=== PATIENT | male | born 1970 | race Caucasian/White ===

== ENCOUNTER → 2020-11-01 08:36 | Outpatient (CLI) | payer OTHER, SELFPAY ==
[2020-11-01 10:05] LABS: Chloride 102 mmol/L (98-107); Potassium 5.2 mmoL/L (3.5-5.1); Sodium 141 mmol/L (136-145)
[2020-11-01 10:07] LABS: Alanine Aminotransferase 21 U/L (12-78); Alkaline Phosphatase 65 U/L (38-126); Aspartate Amino Transferase 47 U/L (17-59); Blood Urea Nitrogen 18 mg/dl (9-20); Estimated Glomerular Filt Rate 70 ml/min (>60); GFR (African American) 85 ML/MIN (>60)
[2020-11-01 10:08] LABS: Albumin Level 4.6 g/dl (3.5-5.0); Albumin/Globulin Ratio 1.4 (1.1-1.8); Anion Gap 8.2 mEq/L (5-15); Calcium 10.1 mg/dl (8.4-10.2); Carbon Dioxide 36 mmol/L (22.0-30.0); Chol/HDL Ratio 3.4 (1-3.5); Cholesterol 192 mg/dl (140-200); Globulin 3.4 g/dL (1.3-3.2); Glucose 96 mg/dl (74-100); HDL Cholesterol 56 mg/dl (40-60); Triglycerides 98 mg/dl (30-150); VLDL Cholesterol 20 mg/dL (0-40)
[2020-11-01 10:19] LABS: Direct LDL Cholesterol 96.29 mg/dL (100-129)
[2020-11-01 11:43] LABS: Prostate Specific Ag Screen 0.7 ng/ml (0.0-4.0)
== END ==
PROVIDERS: PCP Family Medicine; Visit Provider Family Medicine
DX: Z00.00 Encounter for general adult medical examination without abnormal findings (principal); Z12.5 Encounter for screening for malignant neoplasm of prostate
CPT/HCPCS: 36415; 80053; 80061; G0103

== ENCOUNTER → 2021-06-22 20:12 | Outpatient (CLI) | payer OTHER, SELFPAY | PROVIDERS: Visit Provider Nurse Practitioner Family | DX: Z20.822 Contact with and (suspected) exposure to COVID-19 (principal) | CPT/HCPCS: C9803; U0003; U0005 ==

== ENCOUNTER → 2022-03-09 10:45 | Outpatient (CLI) | payer OTHER, SELFPAY ==
--- NOTE | 2022-03-09 10:53 | XR_ITS ---
FINAL REPORT CLINICAL HISTORY: LT ARM PAIN FINDINGS: 2 views of the left humerus were obtained. There is no acute fracture or dislocation. The joint spaces appear intact. There is no acute soft tissue abnormality. IMPRESSION: No acute process. Reviewed, Interpreted and Dictated by Pravin Roach III, MD Transcribed by Nam Saenz Authenticated and [facility]
--- NOTE | 2022-03-09 10:53 | XR_ITS ---
FINAL REPORT CLINICAL HISTORY: RT ELBOW PAIN,SWOLLEN JOINT FINDINGS: LEFT ELBOW Four views were obtained. There is no acute fracture or dislocation. There is no joint effusion. The joint spaces are intact. There is a lateral humeral epicondyle enthesophyte. There is soft tissue swelling over the olecranon likely representing olecranon bursitis. IMPRESSION: No acute fracture. Olecranon bursitis. Reviewed, Interpreted and Dictated by Pravin Roach III, MD Transcribed by Nam Saenz Authenticated and [facility]
== END ==
PROVIDERS: PCP Nurse Practitioner Family; Visit Provider Nurse Practitioner Family
DX: M25.521 Pain in right elbow (principal); M25.40 Effusion, unspecified joint
CPT/HCPCS: 73060; 73080

== ENCOUNTER → 2022-06-28 07:15 | Outpatient (CLI) | payer OTHER, SELFPAY ==
[2022-06-28 08:28] LABS: Basophils # 0.1 K/mm3 (0-0.2); Basophils % 1.5 % (0.1-2.0); Eosinophils # 0.4 K/mm3 (0.0-0.4); Eosinophils % 4.9 % (0.1-12.0); Hematocrit 55.8 % (42.0-52.0); Hemoglobin 17.5 g/dL (14.1-18.0); Lymphocytes # 1.6 K/mm3 (0.7-4.5); Lymphocytes % 20.1 % (10-50); Mean Corpuscular HGB Conc 31.4 g/dL (31.8-35.4); Mean Corpuscular Hemoglobin 31.8 pg (27.0-31.2); Mean Corpuscular Volume 101.3 fl (80-94); Mean Platelet Volume 8.1 fl (7.4-10.4); Monocytes # 0.4 K/mm3 (0.1-1.0); Monocytes % 5.4 % (1.7-9.3); Neutrophils # 5.4 K/mm3 (1.8-7.8); Neutrophils % 68.1 % (37.0-80.0); Platelet Count 278 K/mm3 (142-424); Red Blood Count 5.51 M/mm3 (4.60-6.20); Red Cell Distribution Width 13.1 % (11.5-17.5); White Blood Count 7.9 K/mm3 (4.8-10.8)
[2022-06-28 09:39] LABS: Chloride 100 mmol/L (98-107); Sodium 140 mmol/L (136-145)
[2022-06-28 09:40] LABS: Potassium 4.9 mmoL/L (3.5-5.1)
[2022-06-28 09:42] LABS: Alanine Aminotransferase 17 U/L (12-78); Albumin Level 4.2 g/dl (3.5-5.0); Albumin/Globulin Ratio 1.6 (1.1-1.8); Alkaline Phosphatase 73 U/L (38-126); Anion Gap 11.9 mEq/L (5-15); Aspartate Amino Transferase 39 U/L (17-59); Bilirubin,Total 0.6 mg/dl (0.2-1.3); Blood Urea Nitrogen 20 mg/dl (9-20); Carbon Dioxide 33 mmol/L (22.0-30.0); Cholesterol 168 mg/dl (140-200); Estimated Glomerular Filt Rate 78 ml/min (>60); GFR (African American) 94 ML/MIN (>60); Globulin 2.7 g/dL (1.3-3.2); Total Protein,Serum 6.9 g/dl (6.3-8.2); Triglycerides 61 mg/dl (30-150); VLDL Cholesterol 12 mg/dL (0-40)
[2022-06-28 09:43] LABS: Calcium 8.8 mg/dl (8.4-10.2); Chol/HDL Ratio 2.8 (1-3.5); Glucose 76 mg/dl (74-100); HDL Cholesterol 59 mg/dl (40-60)
[2022-06-28 09:54] LABS: Direct LDL Cholesterol 87.77 mg/dL (100-129)
[2022-06-28 13:35] LABS: Prostate Specific Ag Screen 0.8 ng/ml (0.0-4.0)
[2022-06-29 11:57] LABS: Testosterone,Total 360 ng/dL (264-916)
[2022-06-29 15:11] LABS: Thyroid Stimulating Hormone 3.24 uIU/mL (0.465-4.68)
== END ==
PROVIDERS: PCP Family Medicine; Visit Provider Family Medicine
DX: G25.81 Restless legs syndrome (principal); N52.9 Male erectile dysfunction, unspecified; Z13.220 Encounter for screening for lipoid disorders; Z12.5 Encounter for screening for malignant neoplasm of prostate
CPT/HCPCS: 36415; 80053; 80061; 84403; 84443; 85025; G0103

== ENCOUNTER 2023-12-27 15:32 | Emergency (ER) | payer OTHER, SELFPAY ==
[2023-12-27 15:50] VITALS: BP 150/95; PULSE 80; RESP 19; TEMP 37.1; O2SAT 97; BMI 21.7
--- NOTE | 2023-12-27 16:02 | CA_ITS ---
FINAL REPORT TECHNIQUE: Color Doppler, duplex Doppler and compression sonography of the right lower extremity venous system was performed. CLINICAL HISTORY: PAIN IN RIGHT LEG, Varicosities FINDINGS: There is no evidence of deep venous thrombosis from the level of the groin to the calf. The veins are patent and compressible. IMPRESSION: No evidence of deep venous thrombosis right lower extremity. Authenticated and [facility]
--- NOTE | 2023-12-27 16:04 | ED_ITS ---
Discharge Plan Disposition Patient Disposition: Home, Self-Care Condition: Good Prescriptions Prescriptions: No Action buspirone 10 mg tablet 10 mg PO BID Qty: 60 1RF Referrals Follow up/Referrals: Kaye Felipe APRN [Primary Care Provider] - See instructions Activity Restrictions/Add. Instructions Additional Instructions/Restrictions: * keep your home warm. * wear warm clothes during cold weather, especially on your hands and feet. * try to avoid sudden changes in temperature. * exercise regularly ? this helps improve circulation. * try breathing exercises or yoga to help you relax. * eat a healthy, balanced diet. Follow up with your Family Doctor for further evaluation and exam Return if needed Straight to ER if any life threatening symptoms Clinical Impressions Clinical Impression: Pain Instructions Patient Instructions: Raynaud Phenomenon (Alternative Therapy), Raynaud Disease and Phenomenon Discharge ED Provider: Valentine Fernandes [facility] General Stated complaint: legs in pain , and joints Mode of Arrival: Ambulatory Source of Information: Patient Limitations: No Limitations Time Seen by Provider: 12/27/23 16:04 Description of Symptoms (Recalled from Triage Doc. by RN): PATIENT STATES HE BELIEVES HE HAS CIRCULATION PROBLEMS. REPORTS HIS FEET AND LEGS BEING COLD AND BEING COLD IN GENERAL ALL THE TIME. HEENT Symptoms (Recalled from RN notes): No Resp Symptoms (Recalled from RN notes): No Skin Symptoms (Recalled from RN notes): No MS Symptoms (Recalled from RN notes): No Functional Status (Recalled from RN notes): WNL History of Present Illness Provider Complaint: Patient states that he was worried he may have a circulation problem states for awhile he has been feeling like his feet and hands area staying cold and when he is out in the cold they get worse and have a whitish color on the tips of fingers and toes States that also he had pain in his right leg behind his knee last night and today his leg feels sore there wanting to get checked to make sure he doesnt have a blood clot States he does have some varicose veins Related Data Previous Rx's Medication Instructions Recorded buspirone 10 mg tablet 10 mg PO BID #60 tabs 11/08/21 Allergies Allergy/AdvReac Type Severity Reaction Status Date / Time Antihistamines - Alkylamine Allergy Verified 11/08/21 17:25 Worker's Comp Is this a Worker's Comp case?: No [facility] Disclaimer: The information contained in this section may have been updated after the patient was seen, as this information can be updated by other users. Medical History (Updated 12/27/23 @ 17:00 by Valentine Fernandes APRN) Anxiety Social History Smoking Status: Current every day smoker tobacco type: cigarettes packs per day: 1 and smokeless tobacco alcohol intake: never substance use type: marijuana current occupational status: employed and other Travel in the last 8 weeks: None household members: family housing: house number of children: 2 ROS Obtained: Yes All systems reviewed & no additional complaints except as documented and Yes Systems reviewed as appropriate & no additional complaints except as documented Constitutional Constitutional: Reports system reviewed and no additional complaints, except as documented and Reports as per HPI ENT Ears, Nose, Mouth, and Throat: Reports system reviewed and no additional complaints, except as documented and Reports as per HPI Cardiovascular Cardiovascular: Reports system reviewed and no additional complaints, except as documented and Reports as per HPI Respiratory Respiratory: Reports system reviewed and no additional complaints, except as documented and Reports as per HPI Gastrointestinal Gastrointestingal: Reports system reviewed and no additional complaints, except as documented and as per HPI Musculoskeletal Musculoskeletal: Reports system reviewed and no additional complaints, except as documented and Reports as per HPI Comments: pain behind knee on right leg and leg feeing sore, hx of varicose veins Integumentary/Breasts Comments: feet and hands feeling cold for a long time Physical Exam General General appearance: alert and in no apparent distress ENT ENT exam: Present mucous membranes moist Respiratory Respiratory exam: Present normal lung sounds bilaterally; Absent respiratory distress or wheezes Cardiovascular Cardiovascular exam: Present regular rate, normal rhythm and normal heart sounds Expanded Lower Extremity Exam Right: Leg image: 2 1. reports tenderness with palpation no discoloration no swelling Knee exam: Present tenderness Lower leg exam: Present normal inspection Ankle exam: Present normal inspection Foot/toe exam: Present other (reports feet feels like they are cold whitish area noted on tips of toes appears like Raynaud's syndrome) Neurovascular/Tendon exam: Present normal capillary refill; Absent pulse deficit Neurological Exam Neurological exam: Present alert, oriented X3 and normal gait Skin Skin exam: Present other (reports cold feeling in hands and feet for several months ) Medical Decision Making Avni Inquiry Pt receiving controlled substance: No Avni was queried for this patient: No Vital Signs: 12/27/23 15:50 Temperature 98.7 F Temperature Source Oral Pulse Rate [Left Brachial] 80 Respiratory Rate 19 Blood Pressure [Left Arm] 150/95 H Blood Pressure Mean [Left Arm] 113 Blood Pressure Source [Left Arm] Automatic Cuff Blood Pressure Position [Left Arm] Sitting 02 Sat by Pulse Oximetry 97 Oxygen Delivery Method Room Air Orders (Tests/Meds): ORDERS Category Date Time Status CA venous doppler LE RT Stat Y 12/27/23 16:[address] Data ED CT Reviewed: Yes I have viewed the radiologist's interpretation US Data US Images: Lower Extremity ED US Reviewed: Yes I have viewed radiologist's interpretation Preliminary Findings: Normal/NAD Findings Narrative: IMPRESSION: No evidence of deep venous thrombosis right lower extremity.
[2023-12-27 17:01] VITALS: BP 150/95; PULSE 80; RESP 19; TEMP 37.1; O2SAT 97
== END 2023-12-27 17:03 | disposition home or self-care (01) ==
PROVIDERS: Emergency Provider Nurse Practitioner; PCP Nurse Practitioner Family
DX: M79.604 Pain in right leg (principal); F17.210 Nicotine dependence, cigarettes, uncomplicated
CPT/HCPCS: 93971; 99204; 99212; G0463

== ENCOUNTER 2024-01-06 10:31 | Outpatient (CLI) | payer OTHER, SELFPAY ==
--- NOTE | 2024-01-06 10:49 | XR_ITS ---
PROCEDURE INFORMATION: Exam: XR Right Elbow Exam date and time: 01/06/2024 10:44 AM Age: 53 years old Clinical indication: Pain; Elbow; Right; Additional info: Pain in right elbow TECHNIQUE: Imaging protocol: Radiologic exam of the right elbow. Views: 3 or more views. COMPARISON: CR XR ELBOW RT MIN 3V 03/09/2022 10:55 AM FINDINGS: Bones/joints: Degenerative changes in the humeral ulnar joint and specifically coronoid process. There is no evidence of acute fracture.There is no evidence of malalignment or dislocation. Soft tissues: Normal. IMPRESSION: 1. Degenerative changes in the humeral ulnar joint and specifically coronoid process. 2. There is no evidence of acute fracture.There is no evidence of malalignment or dislocation.
--- NOTE | 2024-01-06 10:49 | XR_ITS ---
PROCEDURE INFORMATION: Exam: XR Right Knee Exam date and time: 01/06/2024 10:41 AM Age: 53 years old Clinical indication: Pain; Knee; Right; Additional info: Pain in right knee TECHNIQUE: Imaging protocol: Radiologic exam of the right knee. Views: 3 views. COMPARISON: No relevant prior studies available. FINDINGS: Bones/joints: There is no evidence of acute fracture.There is no evidence of malalignment or dislocation. Soft tissues: Normal. IMPRESSION: There is no evidence of acute fracture.There is no evidence of malalignment or dislocation.
== END 2024-01-06 23:59 | disposition home or self-care (01) ==
LOC: RAD 10:34
PROVIDERS: PCP Nurse Practitioner Family; Visit Provider Nurse Practitioner Family
DX: M25.521 Pain in right elbow (principal); M25.561 Pain in right knee
CPT/HCPCS: 73080; 73562

== ENCOUNTER 2024-02-13 16:55 | Outpatient (CLI) | payer OTHER, SELFPAY ==
--- NOTE | 2024-02-13 16:56 | MR_ITS ---
FINAL REPORT CLINICAL HISTORY: Rt Knee Pain FINDINGS: Multi planar MR imaging was performed of the right knee. The anterior and posterior cruciate ligaments are intact. The quadriceps and patellar tendons are intact. The medial meniscus is intact. There is linear signal in the posterior horn of the lateral meniscus consistent with a tear. Finding is best seen on image 6 of series 4. Small joint effusion is identified. The medial and lateral collateral ligaments appear intact. The medial and lateral retinacula appear intact. There is no evidence of bone marrow edema or osteochondral defect. No evidence of soft tissue inflammatory reaction. IMPRESSION: Full-thickness tear posterior horn lateral meniscus. Reviewed, Interpreted and Dictated by Edgar Arceo MD Transcribed by Rima Crum Authenticated and [facility]
== END 2024-02-13 23:59 | disposition home or self-care (01) ==
LOC: RAD 16:56
PROVIDERS: PCP Nurse Practitioner Family; Visit Provider Orthopaedic Surgery
DX: M25.561 Pain in right knee (principal)
CPT/HCPCS: 73721

== ENCOUNTER 2024-06-17 08:17 | Outpatient (CLI) | payer OTHER, SELFPAY ==
--- NOTE | 2024-06-17 | ECG_ITS ---
APPROVED REPORT Exam: Resting ECG HR:60 bpm ECG Measurements Heart Rate 60 AXES DC 117 P 71 QRSd 91 QRS 56 QT 394 T 44 QTc 395 Conclusion SINUS RHYTHM WITH SHORT DC INTERVAL POSSIBLE LEFT ATRIAL ENLARGEMENT [-0.1mV P-WAVE IN V1/V2] BORDERLINE ECG UNCONFIRMED REPORT Electronically signed by : Minesh Rushing MD 06/18/2024 08:29:36
--- NOTE | 2024-06-17 08:26 | XR_ITS ---
FINAL REPORT CLINICAL HISTORY: Z01.89 Smoker COMPARISON: None FINDINGS: No acute pulmonary density is evident. There is no evidence of effusion or other pleural disease. The mediastinum has a normal appearance. The cardiac silhouette is unremarkable. IMPRESSION: Unremarkable chest exam. Reviewed, Interpreted and Dictated by Nancie Edwards MD Transcribed by Liana Lao Authenticated and [facility]
[2024-06-17 09:13] LABS: Basophils # 0.1 K/mm3 (0-0.2); Mean Platelet Volume 8.7 fl (7.4-10.4); Monocytes # 0.4 K/mm3 (0.1-1.0)
[2024-06-17 09:19] LABS: Basophils % 0.8 % (0.1-2.0); Eosinophils # 0.2 K/mm3 (0.0-0.4); Eosinophils % 3.2 % (0.1-12.0); Hematocrit 56.5 % (42.0-52.0); Lymphocytes # 1.4 K/mm3 (0.7-4.5); Lymphocytes % 19.6 % (10-50); Mean Corpuscular Volume 99.9 fl (80-94); Neutrophils # 4.9 K/mm3 (1.8-7.8); Neutrophils % 70.4 % (37.0-80.0); Platelet Count 223 K/mm3 (142-424); Red Blood Count 5.65 M/mm3 (4.60-6.20); Red Cell Distribution Width 13.8 % (11.5-17.5)
[2024-06-17 09:25] LABS: Hemoglobin 18.1 g/dL (14.1-18.0)
[2024-06-17 09:27] LABS: Alanine Aminotransferase 17 U/L (12-78); Albumin Level 4.3 g/dl (3.5-5.0); Albumin/Globulin Ratio 1.7 (1.1-1.8); Alkaline Phosphatase 64 U/L (38-126); Anion Gap 7.8 mEq/L (5-15); Aspartate Amino Transferase 29 U/L (17-59); Blood Urea Nitrogen 11 mg/dl (9-20); Calcium 9.6 mg/dl (8.4-10.2); Carbon Dioxide 30 mmol/L (22.0-30.0); Chloride 101 mmol/L (98-107); Estimated Glomerular Filt Rate 77 ml/min (>60); GFR (African American) 94 ML/MIN (>60); Globulin 2.6 g/dL (1.3-3.2); Glucose 94 mg/dl (74-100); Potassium 3.8 mmoL/L (3.5-5.1); Sodium 135 mmol/L (136-145); Total Protein,Serum 6.9 g/dl (6.3-8.2)
== END 2024-06-17 23:59 | disposition home or self-care (01) ==
PROVIDERS: PCP Nurse Practitioner Family; Visit Provider Nurse Practitioner Family
DX: Z01.89 Encounter for other specified special examinations (principal)
CPT/HCPCS: 36415; 71046; 80053; 85025; 93005

== ENCOUNTER 2024-06-19 12:46 | Outpatient (CLI) | payer OTHER, SELFPAY | END 2024-06-19 23:59 | disposition home or self-care (01) | LOC: PREOP 12:47 | PROVIDERS: PCP Nurse Practitioner Family; Visit Provider Orthopaedic Surgery | DX: R69 Illness, unspecified (principal) ==

== ENCOUNTER 2024-11-07 18:21 | Emergency (ER) | payer OTHER, SELFPAY ==
[2024-11-07 18:21] VITALS: BP 139/88; PULSE 79; RESP 20; TEMP 36.7; O2SAT 98; BMI 22.8
--- NOTE | 2024-11-07 18:24 | ECG_ITS ---
APPROVED REPORT Exam: Resting ECG HR:85 bpm ECG Measurements Heart Rate 85 AXES IN 139 P 70 QRSd 88 QRS 31 QT 375 T 38 QTc 417 Conclusion SINUS RHYTHM WITH OCCASIONAL SUPRAVENTRICULAR PREMATURE COMPLEXES LEFT ATRIAL ENLARGEMENT [-0.15mV P-WAVE IN V1/V2] ABNORMAL ECG No STEMI Electronically signed by : XOCHITL HERRING, 11/08/2024 06:04:12
--- NOTE | 2024-11-07 18:28 | PC.NURSE ---
182 paulina at bedside 182 stroke alert called
--- NOTE | 2024-11-07 18:30 | CT_ITS ---
PROCEDURE INFORMATION: Exam: CTA Head With Contrast, Arteriography Exam date and time: 11/07/2024 6:37 PM Age: 54 years old Clinical indication: Stroke-like symptoms; Other: L sided numbness weakness; Additional info: L sided weakness numbness TECHNIQUE: Imaging protocol: Computed tomographic angiography of the head with contrast. Exam focused on the arteries. 3D rendering (Not supervised by radiologist): MIP and/or 3D reconstructed images were created by the technologist. Radiation optimization: All CT scans at this facility use at least one of these dose optimization techniques: automated exposure control; mA and/or kV adjustment per patient size (includes targeted exams where dose is matched to clinical indication); or iterative reconstruction. Contrast material: ISOVUE; Contrast volume: 80 ml; Contrast route: INTRAVENOUS (IV); COMPARISON: CT ANGIO HEAD 11/07/2024 6:37 PM FINDINGS: ANTERIOR CIRCULATION: Right internal carotid artery: Mild calcific atherosclerotic disease of the right intracranial ICA without stenosis. Right middle cerebral artery: No occlusion or significant stenosis. No aneurysm. Right anterior cerebral artery: No occlusion or significant stenosis. No aneurysm. Left internal carotid artery: Intracranial segment is patent with no significant stenosis. No aneurysm. Left middle cerebral artery: No occlusion or significant stenosis. No aneurysm. Left anterior cerebral artery: No occlusion or significant stenosis. No aneurysm. POSTERIOR CIRCULATION: Right vertebral artery: No occlusion or significant stenosis. No aneurysm. Left vertebral artery: No occlusion or significant stenosis. No aneurysm. Basilar artery: No occlusion or significant stenosis. No aneurysm. Right posterior cerebral artery: No occlusion or significant stenosis. No aneurysm. Left posterior cerebral artery: No occlusion or significant stenosis. No aneurysm. Brain: No definite mass, mass effect, or midline shift. Cerebral ventricles: No ventriculomegaly. Bones/joints: Unremarkable. No acute fracture. Soft tissues: Unremarkable. IMPRESSION: Mild calcific atherosclerotic disease of the right intracranial ICA without stenosis.
--- NOTE | 2024-11-07 18:30 | CT_ITS ---
PROCEDURE INFORMATION: Exam: CTA Neck With Contrast Exam date and time: 11/07/2024 6:37 PM Age: 54 years old Clinical indication: Stroke-like symptoms; Other: L sided numbness and weakness TECHNIQUE: Imaging protocol: Computed tomographic angiography of the neck with contrast. Exam focused on the cervical segments of the vasculature. 3D rendering (Not supervised by radiologist): MIP and/or 3D reconstructed images were created by the technologist. Radiation optimization: All CT scans at this facility use at least one of these dose optimization techniques: automated exposure control; mA and/or kV adjustment per patient size (includes targeted exams where dose is matched to clinical indication); or iterative reconstruction. Contrast material: ISOVUE; Contrast volume: 80 ml; Contrast route: INTRAVENOUS (IV); COMPARISON: NECKW CT soft tissue neck w con 04/15/2019 1:47 PM FINDINGS: Right common carotid artery: Moderate mixed calcific and noncalcified atherosclerotic disease of the right carotid bulb resulting in moderate stenosis of the right ECA origin. Right internal carotid artery: No stenosis of the extracranial segment. No dissection or occlusion. Right external carotid artery: See Right common carotid artery finding. Left common carotid artery: Left carotid bulb subtle intraluminal flap best seen on image 87 of series 1002 compatible with dissection flap. Left internal carotid artery: No stenosis of the extracranial segment. No dissection or occlusion. Left external carotid artery: No occlusion or stenosis of the origin. Right vertebral artery: No stenosis. No dissection or occlusion. Left vertebral artery: No stenosis. No dissection or occlusion. Soft tissues: Normal. No significant soft tissue swelling. Bones/joints: Moderate loss of intervertebral disc space with degenerative changes involving C5 through C7. IMPRESSION: 1. Left carotid bulb subtle intraluminal flap best seen on image 87 of series 1002 compatible with dissection flap. 2. Moderate mixed calcific and noncalcified atherosclerotic disease of the right carotid bulb resulting in moderate stenosis of the right ECA origin. REFERENCES: NASCET CRITERIA. The degree of stenosis in the cervical segment of the internal carotid artery is based on NASCET criteria. Normal is no stenosis. Mild is less than 50% stenosis. Moderate is 50-69% stenosis. Severe is 70% to 99% stenosis. Total occlusion is no detectable patent lumen. THIS REPORT CONTAINS FINDINGS THAT MAY BE CRITICAL TO PATIENT CARE. The findings were verbally communicated via telephone conference with Erika Barnett at 7:12 PM EST on 11/07/2024. The findings were acknowledged and understood.
--- NOTE | 2024-11-07 18:30 | CT_ITS ---
PROCEDURE INFORMATION: Exam: CT Head Without Contrast Exam date and time: 11/07/2024 6:35 PM Age: 54 years old Clinical indication: Stroke-like symptoms; Other: L sided numbness weakness TECHNIQUE: Imaging protocol: Computed tomography of the head without contrast. Radiation optimization: All CT scans at this facility use at least one of these dose optimization techniques: automated exposure control; mA and/or kV adjustment per patient size (includes targeted exams where dose is matched to clinical indication); or iterative reconstruction. Other technique: STROKE PROTOCOL was implemented. COMPARISON: NECKW CT soft tissue neck w con 04/15/2019 1:47 PM FINDINGS: Brain: There is moderate diffuse cerebral volume loss present. Multiple subcortical and deep hypoattenuating white matter foci are present, likely related to small vessel senescent changes and can also be seen with prior infectious / inflammatory insult, or prior traumatic events. No hyperattenuating foci are identified to suggest acute intracranial hemorrhage. Posterior pallor falcine lobulated contours and enhance on CT angiography of the head compatible with prominent superficial cerebral veins. Cerebral ventricles: No ventriculomegaly. Paranasal sinuses: Visualized sinuses are unremarkable. No fluid levels. Mastoid air cells: Visualized mastoid air cells are well aerated. Bones: Unremarkable. No acute fracture. Soft tissues: Unremarkable. IMPRESSION: 1. Multiple subcortical and deep hypoattenuating white matter foci are present, likely related to small vessel senescent changes and can also be seen with prior infectious / inflammatory insult, or prior traumatic events. 2. No hyperattenuating foci are identified to suggest acute intracranial hemorrhage. ASSESSMENT: ASPECTS ([place] Stroke Program Early CT Score) is 10.
--- NOTE | 2024-11-07 18:30 | XR_ITS ---
PROCEDURE INFORMATION: Exam: XR Chest Exam date and time: 11/07/2024 6:41 PM Age: 54 years old Clinical indication: Shortness of breath; Additional info: SOA TECHNIQUE: Imaging protocol: Radiologic exam of the chest. Views: 1 view. COMPARISON: CR XR CHEST 2V 06/17/2024 8:32 AM FINDINGS: Lungs: Unremarkable. No consolidation. Pleural spaces: Unremarkable. No pleural effusion. No pneumothorax. Heart/Mediastinum: Unremarkable. No cardiomegaly. Bones/joints: Unremarkable. IMPRESSION: No acute findings.
--- NOTE | 2024-11-07 18:33 | HMH.EDGENADL ---
Discharge Plan Disposition Patient Disposition: Xfer Short-Term Hosp Prescriptions Prescriptions: No Action bupropion HCl 75 mg Tablet 75 mg PO DAILY Rx Instructions: administer 6 hours apart Referrals Follow up/Referrals: Provider,MD Renny [Primary Care Provider] - See instructions Clinical Impressions Clinical Impression: Carotid artery dissection, Acute left-sided weakness Stand Alone Forms Stand Alone Forms: Transfer Record - ED Print Language Print Language: Belarusian Discharge ED Provider: Vamshi Hall General Adult HPI <Vamshi Hall MD - Last Filed: 11/07/24 22:08> General Chief complaint: Neuro Symptoms/Deficit Stated complaint: left sided weakness Time Seen by Provider: 11/07/24 18:33 Related Data Home Medications ?Medication ?Instructions ?Recorded ?Confirmed bupropion HCl 75 mg tablet 75 mg PO DAILY 06/19/24 Allergies Allergy/AdvReac Type Severity Reaction Status Date / Time Antihistamines - Alkylamine Allergy Verified 06/13/24 13:41 <Erika Barnett APRN - Last Filed: 11/07/24 21:38> History of Present Illness HPI narrative: Patient is a 54-year-old male denies PMHx who presents to the ED for left-sided weakness that started Monday evening. Patient states he was walking Monday when he noticed that he felt weaker, he had to sit down. He states his symptoms have been constant since then, he presents to the ED today because he states his symptoms felt worse. He reports left upper extremity weakness, left lower extremity weakness, and left neck numbness. PFSH <Vamshi Hall MD - Last Filed: 11/07/24 22:08> PFSH Medical History (Updated 11/07/24 @ 21:34 by Vamshi Hall MD) Anxiety Surgical History (Updated 06/19/24 @ 12:55 by Julien Martinez RN) No history of previous surgery Family History (Updated 06/19/24 @ 12:56 by Julien Martinez RN) Other Family history of cancer Social History (Updated 06/19/24 @ 12:56 by Julien Martinez RN) Smoking Status: Current every day smoker tobacco type: cigarettes packs per day: 1 and smokeless tobacco alcohol intake: never substance use type: marijuana current occupational status: employed and other Travel in the last 8 weeks: Inside the [place] household members: family housing: house number of children: 2 Have you lived/traveled outside US in past 30 days?: No Contact w/someone who lives/traveled outside US past 30 days?: No Exposure to someone with infectious disease in past 14 days?: No Do you have a fever (greater than 100.4 F or 38 C)?: No Have you tested positive for COVID-19: No Exposed to someone with COVID-19 in past 14 days?: No Do you have a sore throat?: No Do you have a cough?: No Do you have any weakness?: No Do you have any diarrhea?: No Are you experiencing any unusual bleeding?: No Do you have any muscle aches/pain?: No Do you have any abdominal pain?: No Are you experiencing loss of taste or smell?: No <Erika Barnett APRN - Last Filed: 11/07/24 21:38> [facility] Disclaimer: The information contained in this section may have been updated after the patient was seen, as this information can be updated by other users. Other Medical History Have you received the Flu Vaccine for this season: Yes Have you received the Pneumonia Vaccine: No <Erika Barnett APRN - Last Filed: 11/07/24 21:38> ROS Obtained: Yes Systems reviewed as appropriate & no additional complaints except as documented Physical Exam <Erika Barnett APRN - Last Filed: 11/07/24 21:38> General General appearance: alert Head Head exam: atraumatic Eye Eye exam: Present normal appearance and PERRL; Absent nystagmus Chest Chest inspection: Present normal inspection and symmetric chest wall rise Respiratory Respiratory exam: Present normal lung sounds bilaterally; Absent respiratory distress Cardiovascular Cardiovascular exam: Present regular rate Abdominal Exam Abdominal exam: Present soft; Absent tenderness Extremities Exam Extremities exam: Present other (Left upper extremity weakness, left lower extremity weakness with drift, decreased sensation) Back Exam Back exam: Present normal inspection Neurological Exam Neurological exam: Present alert and oriented X3 Psychiatric Psychiatric exam: Present normal affect Skin Skin exam: Present warm and dry Medical Decision Making <Vamshi Hall MD - Last Filed: 11/07/24 22:08> Vital Signs: 11/07/24 18:21 11/07/24 19:00 11/07/24 19:30 Temperature 98.0 F Temperature Source Oral Pulse Rate 72 75 Pulse Rate [Right] 79 Respiratory Rate 20 21 17 Blood Pressure 139/88 152/93 H Blood Pressure [Right Arm] 139/88 Blood Pressure Mean 112 116 Blood Pressure Mean [Right Arm] 105 Blood Pressure Source [Right Arm] Automatic Cuff 02 Sat by Pulse Oximetry 98 97 97 Oxygen Delivery Method Room Air 11/07/24 20:00 11/07/24 20:30 Temperature Temperature Source Pulse Rate 80 68 Pulse Rate [Right] Respiratory Rate 15 9 L Blood Pressure 149/103 H 142/99 H Blood Pressure [Right Arm] Blood Pressure Mean 118 108 Blood Pressure Mean [Right Arm] Blood Pressure Source [Right Arm] 02 Sat by Pulse Oximetry 98 99 Oxygen Delivery Method Lab Data Lab Results 11/07/24 18:23: WBC 10.8, RBC 6.00, Hgb 19.3 H, Hct 56.2 H, MCV 93.7, MCH 31.8 H, MCHC 34.0, RDW 12.9, Plt Count 247, MPV 9.9, Neut % (Auto) 73.6, Lymph % (Auto) 17.7, [place] % (Auto) 5.4, Eos % (Auto) 2.4, Baso % (Auto) 0.6, Neut # (Auto) 8.0 H, Lymph # (Auto) 1.9, [place] # (Auto) 0.6, Eos # (Auto) 0.3, Baso # (Auto) 0.1, PT 10.7, INR 0.97, APTT 28.1, Sodium 138, Potassium 3.9, Chloride 98, Carbon Dioxide 30, Anion Gap 13.9, BUN 14, Creatinine 0.90, Estimated GFR 87, Est GFR ( Amer) 106, Glucose 123 H, Calcium 9.1, Total Bilirubin 0.9, AST 38, ALT 21, Alkaline Phosphatase 71, Total Protein 8.6 H, Albumin 5.0, Globulin 3.6 H, Albumin/Globulin Ratio 1.4, Plasma/Serum Alcohol < 10, HCV Ab [facility] w/Rflx PCR Qn Negative, HIV Ag/Ab Combo Qual Negative 11/07/24 19:54: Blood Type O Positive, Antibody Screen Negative 11/07/24 18:23 11/07/24 18:23 Orders (Tests/Meds): ED MEDICATIONS Generic Name Dose Route Start Last Admin Trade Name Freq PRN Reason Stop Dose Admin Sodium Chloride 10 ml 11/07/24 18:39 11/07/24 18:40 Sodium Chloride 0.9% 10ml Syr (Rad Only) IV 12/07/24 18:38 10 ml NEEDED PRN Administration Maintain IV Site Discontinued Medications Generic Name Dose Route Start Last Admin Trade Name Thao PRN Reason Stop Dose Admin Aspirin 324 mg 11/07/24 19:20 11/07/24 19:27 Aspirin 81mg Chewable Tablet PO 11/07/24 19:21 324 mg ONCE ONE Administration Iopamidol 80 ml 11/07/24 18:39 11/07/24 18:40 Iopamidol-370 (76%);100ml Bottle IV 11/07/24 18:40 80 ml ONCE ONE Administration Sodium Chloride 50 ml 11/07/24 18:39 11/07/24 18:40 0.9 % Sodium Chloride 50 Ml Vial IV 11/07/24 18:40 50 ml ONCE ONE Administration ORDERS Category Date Time Status Type and Screen Stat BBK 11/07/24 19:[address] angio head Stat Cat Scan 11/07/24 18:[address] angio neck Stat Cat Scan 11/07/24 18:[address] head/brain wo con Stat Cat Scan 11/07/24 18:30 Completed CXR --portable [XR chest portable] Stat Exams 11/07/24 18:30 Completed CBC w/Auto Diff [Complete Blood Count Auto Diff] Stat Lab 11/07/24 18:23 Completed CMP [Comprehensive Metabolic Panel] Stat Lab 11/07/24 18:23 Completed Ethyl Alcohol Stat Lab 11/07/24 18:23 Completed HIV Combo Stat Lab 11/07/24 18:23 Completed Hepatitis C Ab Qual. W/ RFX Stat Lab 11/07/24 18:23 Completed PT/PTT Stat Lab 11/07/24 18:23 Completed UDS [Drug Screen,Urine] Stat Lab 11/07/24 18:30 Ordered Urinalysis and Microscopic Stat Lab 11/07/24 18:30 Ordered ECG Data Tracing #1: I reviewed this ECG and interpreted as documented below: (Sinus rhythm occasional PACs. Rate 85, [place] interval 139, QRS 88, QTc 417 with normal axis) Medical Decision Narrative: In summary, patient is a 54-year-old male with no significant PMHx who presents to the ED for complaints of left-sided weakness and numbness. Patient states that his symptoms started Monday evening with leg weakness and left arm weakness. States his symptoms have been constant since then. He reports that today they progressively have gotten worse. He denies taking any medication. He admits to drinking 1 hilton per day. Denies drug use. Denies fever, chills, body aches, headache, visual disturbances, chest pain, shortness of breath, abdominal pain. Upon initial evaluation, patient is alert, oriented and cooperative. He is hemodynamically stable patient has obvious left-sided weakness, mild left-sided facial droop, obvious left hand droop. He reports that he has numbness in the left side of his neck. Due to concern of stroke, patient was stroke alerted immediately. Differential diagnosis includes stroke, ICH, infectious process, among others. Initial workup will be conducted with CT scans, hematologic labs. CBC unremarkable for leukocytosis, stable H&H. CMP unremarkable for any actionable abnormalities. Normal coags. Initial inventions include stroke alert. Call from [employer] showing a left-sided carotid bulb dissection. Final read left carotid bulb subtle intraluminal flap best seen on image 87 of series 1002, compatible with a dissection flap. CT of the head remarkable for mild calcific atherosclerotic disease at the right intracranial ICA without stenosis. Chest x-ray unremarkable for any acute findings. Will administer aspirin. Patient is normotensive, normal heart rate at this time. Attempted to transfer to just about every hospital in 2-hour radius. Finally accepted at [facility]. I was consulted by the OSMAR, and we discussed the complexity of the problems being addressed. I approved the treatment and management plan for this patient's care in the Emergency Department, thus performing a substantive portion of the medical decision making. Vamshi Hall MD <Erika Barnett, GUARD LIEUTENANT - Last Filed: 11/07/24 21:38> Medical Records Screening: Per USPSTF and CDC recommendations, given the prevalence of disease in our region, it is our hospital?s policy to screen for HIV and viral Hepatitis for all patients aged 18 and over and those with ongoing risk factors. Avni Inquiry Pt receiving controlled substance: No Avni was queried for this patient: No Vital Signs: 11/07/24 18:21 11/07/24 19:00 11/07/24 19:30 Temperature 98.0 F Temperature Source Oral Pulse Rate 72 75 Pulse Rate [Right] 79 Respiratory Rate 20 21 17 Blood Pressure 139/88 152/93 H Blood Pressure [Right Arm] 139/88 Blood Pressure Mean 112 116 Blood Pressure Mean [Right Arm] 105 Blood Pressure Source [Right Arm] Automatic Cuff 02 Sat by Pulse Oximetry 98 97 97 Oxygen Delivery Method Room Air 11/07/24 20:00 11/07/24 20:30 Temperature Temperature Source Pulse Rate 80 68 Pulse Rate [Right] Respiratory Rate 15 9 L Blood Pressure 149/103 H 142/99 H Blood Pressure [Right Arm] Blood Pressure Mean 118 108 Blood Pressure Mean [Right Arm] Blood Pressure Source [Right Arm] 02 Sat by Pulse Oximetry 98 99 Oxygen Delivery Method Lab Data Lab Results 11/07/24 18:23: WBC 10.8, RBC 6.00, Hgb 19.3 H, Hct 56.2 H, MCV 93.7, MCH 31.8 H, MCHC 34.0, RDW 12.9, Plt Count 247, MPV 9.9, Neut % (Auto) 73.6, Lymph % (Auto) 17.7, [place] % (Auto) 5.4, Eos % (Auto) 2.4, Baso % (Auto) 0.6, Neut # (Auto) 8.0 H, Lymph # (Auto) 1.9, [place] # (Auto) 0.6, Eos # (Auto) 0.3, Baso # (Auto) 0.1, PT 10.7, INR 0.97, APTT 28.1, Sodium 138, Potassium 3.9, Chloride 98, Carbon Dioxide 30, Anion Gap 13.9, BUN 14, Creatinine 0.90, Estimated GFR 87, Est GFR ( Amer) 106, Glucose 123 H, Calcium 9.1, Total Bilirubin 0.9, AST 38, ALT 21, Alkaline Phosphatase 71, Total Protein 8.6 H, Albumin 5.0, Globulin 3.6 H, Albumin/Globulin Ratio 1.4, Plasma/Serum Alcohol < 10, HCV Ab [facility] w/Rflx PCR Qn Negative, HIV Ag/Ab Combo Qual Negative 11/07/24 19:54: Blood Type O Positive, Antibody Screen Negative Orders (Tests/Meds): ED MEDICATIONS Generic Name Dose Route Start Last Admin Trade Name Freq PRN Reason Stop Dose Admin Sodium Chloride 10 ml 11/07/24 18:39 11/07/24 18:40 Sodium Chloride 0.9% 10ml Syr (Rad Only) IV 12/07/24 18:38 10 ml NEEDED PRN Administration Maintain IV Site Discontinued Medications Generic Name Dose Route Start Last Admin Trade Name Thao PRN Reason Stop Dose Admin Aspirin 324 mg 11/07/24 19:20 11/07/24 19:27 Aspirin 81mg Chewable Tablet PO 11/07/24 19:21 324 mg ONCE ONE Administration Iopamidol 80 ml 11/07/24 18:39 11/07/24 18:40 Iopamidol-370 (76%);100ml Bottle IV 11/07/24 18:40 80 ml ONCE ONE Administration Sodium Chloride 50 ml 11/07/24 18:39 11/07/24 18:40 0.9 % Sodium Chloride 50 Ml Vial IV 11/07/24 18:40 50 ml ONCE ONE Administration ORDERS Category Date Time Status Type and Screen Stat BBK 11/07/24 19:[address] angio head Stat Cat Scan 11/07/24 18:[address] angio neck Stat Cat Scan 11/07/24 18:[address] head/brain wo con Stat Cat Scan 11/07/24 18:30 Completed CXR --portable [XR chest portable] Stat Exams 11/07/24 18:30 Completed CBC w/Auto Diff [Complete Blood Count Auto Diff] Stat Lab 11/07/24 18:23 Completed CMP [Comprehensive Metabolic Panel] Stat Lab 11/07/24 18:23 Completed Ethyl Alcohol Stat Lab 11/07/24 18:23 Completed HIV Combo Stat Lab 11/07/24 18:23 Completed Hepatitis C Ab Qual. W/ RFX Stat Lab 11/07/24 18:23 Completed PT/PTT Stat Lab 11/07/24 18:23 Completed UDS [Drug Screen,Urine] Stat Lab 11/07/24 18:30 Ordered Urinalysis and Microscopic Stat Lab 11/07/24 18:30 Ordered Medical Decision Narrative: In summary, patient is a 54-year-old male with no significant PMHx who presents to the ED for complaints of left-sided weakness and numbness. Patient states that his symptoms started Monday evening with leg weakness and left arm weakness. States his symptoms have been constant since then. He reports that today they progressively have gotten worse. He denies taking any medication. He admits to drinking 1 hilton per day. Denies drug use. Denies fever, chills, body aches, headache, visual disturbances, chest pain, shortness of breath, abdominal pain. Upon initial evaluation, patient is alert, oriented and cooperative. He is hemodynamically stable patient has obvious left-sided weakness, mild left-sided facial droop, obvious left hand droop. He reports that he has numbness in the left side of his neck. Due to concern of stroke, patient was stroke alerted immediately. Differential diagnosis includes stroke, ICH, infectious process, among others. Initial workup will be conducted with CT scans, hematologic labs. CBC unremarkable for leukocytosis, stable H&H. CMP unremarkable for any actionable abnormalities. Normal coags. Initial inventions include stroke alert. Call from [employer] showing a left-sided carotid bulb dissection. Final read left carotid bulb subtle intraluminal flap best seen on image 87 of series 1002, compatible with a dissection flap. CT of the head remarkable for mild calcific atherosclerotic disease at the right intracranial ICA without stenosis. Chest x-ray unremarkable for any acute findings. Will administer aspirin. Patient is normotensive, normal heart rate at this time. Attempted to transfer to [facility], they are on divert, attempted to transfer to , spoke to Dr. Baptiste for neurology, they do not have any beds at this time. Attempted to transfer to [facility], they are full. Attempted to transfer to [facility], they have no neurology on. Accepted at [facility] by Dr. Albert. Shared decision making used, patient is agreeable to be transferred at this time. He remains hemodynamically stable while in the ED. Attempted to transfer to just about every hospital in 2-hour radius. Finally accepted at [facility]. I was consulted by the OSMAR, and we discussed the complexity of the problems being addressed. I approved the treatment and management plan for this patient's care in the Emergency Department, thus performing a substantive portion of the medical decision making. Vamshi Hall MD Critical Care <Vamshi Hall MD - Last Filed: 11/07/24 22:08> Critical Care Time Critical Care Time: Yes (neuro) Attestation: On 11/07/24, the high probability of a clinically significant, sudden or life threatening deterioration of the following system(s) required my full and direct attention, intervention and personal management. The time I documented below is in addition to time spent performing reported procedures but includes the following listed in this critical care notation. Total Time Total Critical Care Time: 75
[2024-11-07 18:36] LABS: Basophils # 0.1 K/mm3 (0-0.2); Basophils % 0.6 % (0.1-2.0); Eosinophils # 0.3 K/mm3 (0.0-0.4); Eosinophils % 2.4 % (0.1-12.0); Hematocrit 56.2 % (42.0-52.0); Lymphocytes # 1.9 K/mm3 (0.7-4.5); Lymphocytes % 17.7 % (10-50); Mean Corpuscular Hemoglobin 31.8 pg (27.0-31.2); Mean Corpuscular Volume 93.7 fl (80-94); Mean Platelet Volume 9.9 fl (7.4-10.4); Monocytes # 0.6 K/mm3 (0.1-1.0); Monocytes % 5.4 % (1.7-9.3); Neutrophils % 73.6 % (37.0-80.0); Platelet Count 247 K/mm3 (142-424); Red Cell Distribution Width 12.9 % (11.5-17.5); White Blood Count 10.8 K/mm3 (4.8-10.8)
[2024-11-07 18:39] LABS: Chloride 98 mmol/L (98-107)
[2024-11-07 18:40] LABS: Potassium 3.9 mmoL/L (3.5-5.1); Sodium 138 mmol/L (136-145)
[2024-11-07] MEDS: IOPAMIDOL-370 (76%);100ML BOTTLE 80 ML IV (18:40)
[2024-11-07] MEDS: 0.9 % SODIUM CHLORIDE 50 ML VIAL IV (18:40)
[2024-11-07] MEDS: SODIUM CHLORIDE 0.9% 10ML SYR (RAD ONLY) 10 ML IV (18:40)
[2024-11-07 18:42] LABS: Alanine Aminotransferase 21 U/L (12-78); Anion Gap 13.9 mEq/L (5-15); Aspartate Amino Transferase 38 U/L (17-59); Blood Urea Nitrogen 14 mg/dl (9-20); Carbon Dioxide 30 mmol/L (22.0-30.0); Estimated Glomerular Filt Rate 87 ml/min (>60); GFR (African American) 106 ML/MIN (>60)
[2024-11-07 18:43] LABS: Albumin/Globulin Ratio 1.4 (1.1-1.8); Alkaline Phosphatase 71 U/L (38-126); Bilirubin,Total 0.9 mg/dl (0.2-1.3); Calcium 9.1 mg/dl (8.4-10.2); Globulin 3.6 g/dL (1.3-3.2); Glucose 123 mg/dl (74-100); Total Protein,Serum 8.6 g/dl (6.3-8.2)
[2024-11-07 18:44] LABS: Hemoglobin 19.3 g/dL (14.1-18.0)
--- NOTE | 2024-11-07 18:44 | PC.NURSE ---
PT RETURNED FROM CT
[2024-11-07 18:45] LABS: Activated Partial Thrombo Time 28.1 seconds (22.5-28.5); INR 0.97 (0.9-1.1); Prothrombin Time 10.7 seconds (9.2-12.1)
[2024-11-07 19:00] VITALS: BP 139/88; PULSE 72; RESP 21; O2SAT 97
[2024-11-07 19:14] VITALS: BMI 22.8
--- NOTE | 2024-11-07 19:21 | PC.NURSE ---
Called [facility] for transfer said [place] [facility] out of service said they call [facility] and call us back
[2024-11-07] MEDS: ASPIRIN 81MG CHEWABLE TABLET 324 MG PO (19:27)
--- NOTE | 2024-11-07 19:28 | PC.NURSE ---
Called transfer center @ 19:28
[2024-11-07 19:30] VITALS: BP 152/93; PULSE 75; RESP 17; O2SAT 97
--- NOTE | 2024-11-07 19:37 | PC.NURSE ---
received a call back from [facility] at this time. COMPUTER PROJECT MANAGER talking to physician now.
[2024-11-07 19:45] LABS: Ethyl Alcohol < 10 mg/dl (0-10)
--- NOTE | 2024-11-07 19:47 | PC.NURSE ---
rounded on pt no new needs at this time. MD at bedside to update family
--- NOTE | 2024-11-07 19:57 | PC.NURSE ---
spoke with [facility] to cancel flight on standby until placement verified
[2024-11-07 20:00] VITALS: BP 149/103; PULSE 80; RESP 15; O2SAT 98
--- NOTE | 2024-11-07 20:18 | PC.NURSE ---
Called [facility] for a transfer said they would call back
[2024-11-07 20:30] VITALS: BP 142/99; PULSE 68; RESP 9; O2SAT 99
[2024-11-07 20:30] LABS: HIV Combo NEGATIVE (Negative)
[2024-11-07 20:38] LABS: Hepatitis C Ab Qual. W/ RFX NEGATIVE (Negative)
[2024-11-07 22:10] LABS: Microscopic, Urine URINE MICROSCOPIC (MICROSCOPIC)
[2024-11-07 22:12] LABS: Appearance,Urine CLEAR (Clear); Bilirubin,Urine Negative (Negative); Blood, Urine TRACE-I (Negative); Color,Urine YELLOW (Yellow); Glucose,Urine (UA) Negative (Negative); Ketones,Urine Negative (Negative); Leukocyte Esterase,Urine Negative (Negative); Nitrate,Urine Negative (Negative); PH,Urine 6.5 (5.0-8.5); Protein,Urine Negative (Negative); Specific Gravity, Urine <= 1.005 (1.005-1.030); Urobilinogen,Urine 0.2 EU/dl (0.2)
[2024-11-07 22:13] VITALS: BP 140/92; PULSE 68; RESP 14; TEMP 36.9; O2SAT 98
[2024-11-07 22:25] LABS: Amphetamine/Metha Screen,Urine Negative ng/ml (<1000)
[2024-11-07 22:26] LABS: Bacteria,Urine Trace /lpf; Barbiturates Screen,Urine Negative ng/ml (<200); Benzodiazepines Screen,Urine Negative ng/ml (<200); RBC,Urine Occasional #/hpf (0-3); WBC,Urine Occasional #/hpf (0-3)
[2024-11-07 22:27] LABS: Methadone Screen,Urine Negative ng/ml (<300)
[2024-11-07 22:28] LABS: Cannabinoid Screen,Urine Negative ng/ml (<50); Cocaine Screen,Urine Negative ng/ml (<300)
[2024-11-07 22:29] LABS: Opiate Screen,Urine Negative ng/ml (<300); Phencyclidine Screen,Urine Negative ng/ml (<25)
== END 2024-11-07 22:14 | disposition short-term general hospital (02) ==
PROVIDERS: Nurse Practitioner; Emergency Provider Emergency Medicine
DX: I77.71 Dissection of carotid artery (principal); R53.1 Weakness; R20.2 Paresthesia of skin; F17.210 Nicotine dependence, cigarettes, uncomplicated
CPT/HCPCS: 70450; 70496; 70498; 71045; 80053; 80307; 80320; 81001; 85025; 85610; 85730; 86803; 86850; 87389; 93005; 99291; G0480; Q9967

== ENCOUNTER 2024-12-02 14:31 | Outpatient (CLI) | payer OTHER, SELFPAY ==
[2024-12-02 16:08] LABS: Hemoglobin A1C 5.5 % (4.0-6.0)
[2024-12-02 16:51] LABS: Thyroid Stimulating Hormone 2.43 uIU/mL (0.465-4.68)
[2024-12-02 17:21] LABS: Alanine Aminotransferase 30 U/L (12-78); Albumin Level 4.2 g/dl (3.5-5.0); Albumin/Globulin Ratio 1.7 (1.1-1.8); Alkaline Phosphatase 69 U/L (38-126); Anion Gap 12.9 mEq/L (5-15); Aspartate Amino Transferase 37 U/L (17-59); Bilirubin,Total 0.4 mg/dl (0.2-1.3); Blood Urea Nitrogen 20 mg/dl (9-20); Calcium 8.8 mg/dl (8.4-10.2); Carbon Dioxide 29 mmol/L (22.0-30.0); Chloride 97 mmol/L (98-107); Estimated Glomerular Filt Rate 87 ml/min (>60); GFR (African American) 106 ML/MIN (>60); Globulin 2.5 g/dL (1.3-3.2); Glucose 84 mg/dl (74-100); Potassium 3.9 mmoL/L (3.5-5.1); Sodium 135 mmol/L (136-145); Total Protein,Serum 6.7 g/dl (6.3-8.2)
== END 2024-12-02 23:59 | disposition home or self-care (01) ==
LOC: LAB 14:33
PROVIDERS: PCP Family Medicine; Visit Provider Clinical Nurse Specialist Adult Health
DX: R79.89 Other specified abnormal findings of blood chemistry (principal); I63.9 Cerebral infarction, unspecified
CPT/HCPCS: 36415; 80053; 83036; 84443

== ENCOUNTER 2025-02-25 14:25 | Outpatient (CLI) | payer OTHER, SELFPAY | END 2025-02-25 23:59 | disposition home or self-care (01) | LOC: LAB.DROPOF 02-26 10:37 | PROVIDERS: PCP Nurse Practitioner Family; Visit Provider Nurse Practitioner Family | DX: R31.9 Hematuria, unspecified (principal) | CPT/HCPCS: 87086 ==

== ENCOUNTER 2025-06-20 21:32 | Outpatient (CLI) | payer OTHER, SELFPAY ==
--- OUTSIDE RECORDS SUMMARY | 2025-06-20 21:34 | XMS_ITS | Clinical Summary ---
Author Organization [facility] Address [address] [place] [address] Care Team Providers Care Grade Checker Name Role Phone Minesh Godwin MD Primary Care Provider [phone] Social History Tobacco Use Types Packs/Day Years Used Date Smoking Tobacco: Never Assessed Sex and Gender Information Value Date Recorded Sex Assigned at Not on file Legal Sex Male 8:54 AM EDT Gender Identity Not on file Sexual Orientation Not on file Plan of Treatment Health Maintenance Due Date Last Done Comments ANNUAL PHYSICAL 1968 HEPATITIS C SCREENING 1968 TDAP/TD VACCINES (2 - Tdap) 11/26/2006 11/26/1996 COLOGUARD 2013 COLON CANCER SCREENING 5 YEAR SIGMOIDOSCOPY 2013 COLONOSCOPY [address] CANCER SCREENING [address] COLONOGRAPHY 2013 FECAL OCCULT BLOOD TEST 2013 FIT Testing (1 year) 2013 Pneumococcal Vaccine 50+ (1 of 1 - PCV) 2018 ZOSTER VACCINE (1 of 2) 2018 INFLUENZA VACCINE 04/25/2025 Insurance [employer] [place] Care Teams Grade Checker Relationship Specialty Start Date End Date Mniesh Godwin MD [facility] [place] [address] PCP - General Family Medicine 12/20/24
--- OUTSIDE RECORDS SUMMARY | 2025-06-20 21:34 | XMS_ITS | Clinical Summary ---
Author Organization Healthcare Address [address] [place] [address] Care Team Providers Care Nuclear Supervising Operator Name Role Phone Unavailable Primary Care Provider Unavailabl e Social History Tobacco Use Types Packs/Day Years Used Date Smoking Tobacco: Never Assessed Sex and Gender Information Value Date Recorded Sex Assigned at Not on file Legal Sex Male 10:40 PM EDT Gender Identity Not on file Sexual Orientation Not on file Plan of Treatment Health Maintenance Due Date Last Done Comments [facility]-Depression Screening 1968 [facility]-/Child/Adol SDOH Screenings 1968 [facility]- SDOH Screenings 1986 [facility]-Adult SDOH Screenings 1986 [facility]-Hepatitis B Vaccines (1 of 3 - 19+ 3-dose series) 1987 [facility]-DTaP,Tdap,and Td Vaccine s (1 - Tdap) 11/27/1996 11/26/1996 CT Colonography 2013 Colonoscopy 2013 FIT-DNA 2013 FIT 2013 FOBT 2013 Sigmoidoscopy 2013 [facility]-Colorectal Cancer Screening 2013 [facility]-Pneumococcal Vaccine: 50 + Years (1 of 1 - PCV) 2018 [facility]-Zoster Vaccines (1 of 2) 2018 VAT-RAVDH-61 Vaccine (1 - 20 24-25 season) 2025 [facility]-Influenza Vaccine (#1) 2025 HPV Vaccines Aged Out No longer eligi ble based on patient's age to complete this topic [facility]-HIB Vaccines Aged Out No longer e ligible based on patient's age to complete this topic [facility]-Hepatitis A Vaccines Aged Out No longer eligible based on patient's age to complete this topic [facility]-IPV Vaccines Aged Out No longer e ligible based on patient's age to complete this topic [facility]-Rotavirus Vaccines Aged Out No lo nger eligible based on patient's age to complete this topic Insurance [facility] MEDICAID
[2025-06-23 10:47] LABS: Microscopic, Urine URINE MICROSCOPIC (MICROSCOPIC)
[2025-06-23 11:17] LABS: Bilirubin,Urine Negative (Negative); Color,Urine YELLOW (Yellow); Glucose,Urine (UA) Negative (Negative); Ketones,Urine Negative (Negative); Leukocyte Esterase,Urine Negative (Negative); PH,Urine 5.5 (5.0-8.5); Protein,Urine Negative (Negative); Specific Gravity, Urine 1.025 (1.005-1.030); Urobilinogen,Urine 0.2 EU/dl (0.2)
[2025-06-23 11:52] LABS: Bacteria,Urine 1+ /lpf
== END 2025-06-20 23:59 | disposition home or self-care (01) ==
LOC: LAB 21:32
PROVIDERS: PCP Family Medicine; Visit Provider Family Medicine
DX: R31.9 Hematuria, unspecified (principal); I10 Essential (primary) hypertension
CPT/HCPCS: 81001

== ENCOUNTER 2025-06-20 21:34 | Outpatient (CLI) | payer OTHER, SELFPAY | END 2025-06-20 23:59 | disposition home or self-care (01) | LOC: LAB 21:34 | PROVIDERS: PCP Family Medicine; Visit Provider Family Medicine | DX: I10 Essential (primary) hypertension (principal); R31.9 Hematuria, unspecified ==

== ENCOUNTER 2025-06-23 12:13 | Outpatient (CLI) | payer OTHER, SELFPAY ==
--- OUTSIDE RECORDS SUMMARY | 2025-06-23 12:16 | XMS_ITS | Clinical Summary ---
Author Organization [facility] Address [address] [place] [address] Care Team Providers Care Warp Knitter Helper Name Role Phone Unavailable Primary Care Provider [...] 2018 [facility]-Zoster Vaccines (1 of 2) 2018 GWM-DQTRC-18 Vaccine (1 - 20 24-25 season) 2025 [...] patient's age to complete this topic Insurance [facility] MEDICAID
--- OUTSIDE RECORDS SUMMARY | 2025-06-23 12:16 | XMS_ITS | Patient Health Record ---
Author Organization [facility] Address [address] [place] [id number] Care Team Providers Care Youth Advocate Name Role Phone Remi Skinner Primary Care Provider Allergies No Known Allergies Reason For Referral No Information Medications Medication SIG (Take, Route, Frequency, Duration) Notes Start Date End Date Status rOPINIRole HCl 0.5 MG 1 or 2 tab(s) oral ly At Bed Time 06/27/2022 Active Cyclobenzaprine HCl 5 MG 1 tab(s) orally 3 times a day as needed Active Sildenafil Citrate 50 MG 1 tab(s) orally as directed 06/27/2022 Active Immunizations Vaccine Route Administration Date Status Comme nts DT, 7 YEARS OR OLDER Unknown 11/26/1996 Administered Problems Problem Type SNOMED Code ICD Code Onset Dates Problem Status W/U Status Risk Notes Problem Erectile dysfunction (disorder) (850006374) Erectile dysfunction, unspecified erectile dysfunction type (N52.9) Active confirmed Problem Restless legs (14158908) RLS (restless legs syndrome) (G25.81) Active confirmed Plan Of Treatment No Information Insurance Providers Payer Name Payer Address Payer Phone Subscriber Number Group Number Insured Name Patient Relationship to Insured Coverage Start Date Coverage End Date [employer] [address] [address] [place] [address] [id number] Pravin Anderson Self - patient is the insured Medical (General) History Medical History History ICD Code 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
--- OUTSIDE RECORDS SUMMARY | 2025-06-23 12:16 | XMS_ITS | Clinical Summary ---
Author Organization [facility] Address [address] [place] [address] Care Team Providers Care Plasterer Spray Gun Name Role Phone Minesh Godwin MD Primary Care Provider [phone]- [phone] Social History Tobacco Use Types Packs/Day Years [...] INFLUENZA VACCINE 04/25/2025 Insurance [employer] [place] Care Teams Plasterer Spray Gun Relationship Specialty Start Date End Date Minesh Godwin MD [facility] [place] [address] PCP - General Family Medicine 12/20/24
[2025-06-23 12:41] LABS: Hematocrit 43.5 % (42.0-52.0); Hemoglobin 14.6 g/dL (14.1-18.0); Immature Granulocytes % 0.3 %; Mean Corpuscular HGB Conc 33.6 g/dL (31.8-35.4); Mean Corpuscular Hemoglobin 30.9 pg (27.0-31.2); Mean Corpuscular Volume 92.2 fl (80-94); Nucleated Red Blood Cells % 0 %; Platelet Count 247 K/mm3 (142-424); Red Blood Count 4.72 M/mm3 (4.60-6.20); Red Cell Distribution Width-SD 41.8 fL; White Blood Count 6.8 K/mm3 (4.8-10.8)
== END 2025-06-23 23:59 | disposition home or self-care (01) ==
LOC: LAB 12:14
PROVIDERS: PCP Family Medicine; Visit Provider Family Medicine
DX: I10 Essential (primary) hypertension (principal)
CPT/HCPCS: 36415; 85025

== ENCOUNTER 2025-06-30 14:24 | Outpatient (CLI) | payer OTHER, SELFPAY ==
--- OUTSIDE RECORDS SUMMARY | 2025-06-30 14:27 | XMS_ITS | Encounter Summary ---
Author Organization [employer] ([place], [place], [place], [place]) Address [address] [place] [address] Care Team Providers Care Harbor Tug Captain Name Role Phone [facility], Find-A-Doc Primary Care Provider Minesh Godwin MD Primary Care Provider [phone] Reason for Visit * Reason Onset Date Comments Hospital Follow Up 11/11/2024 Encounter Details Date Type Department Care Team (Late st Contact Info) Description 11/11/2024 Telephone [facility] Primary Care [address] [place] [address] Maryan Ponce DO [address] [place] [address] Hospital Follow Up Social History Tobacco Use Types Packs/Day Years Used Date Smoking Tobacco: Every Day Cigarettes 1 35.8 Started: 1989 Smokeless Tobacco: Current Snuff Sex and Gender Information Value Date Recorded Sex Assigned at Not on file 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 Ponce Next Visit: 11/19/2024 Last Visit: Visit date not found Expected timeframe to follow up with provider after discharge: Location admitted: [facility] Reason for admission: TIA (transient ischemic attack) Admission date:11/07/24 Discharge date: 11/09/24 List of medication given at discharge: amlodipine besylate 5 mg oral Daily aspirin 81 mg oral Daily atorvastatin calcium 20 mg oral Every Night clopidogrel bisulfate 75 mg oral Daily, Look-alike/Sound-alike medication Were labs or imaging done? Yes, in epic. Additional information: Patient will need new patient paperwork. Caller Name: d/c list Relation to patient: Best Call Back Phone Number: OK to leave message on voicemail: PAPER INSTALLER documented in this encounter Plan of Treatment Upcoming Encounters Date Type Department Care Team (Late st Contact Info) Description 07/28/2025 1:00 PM EST Office Visit [facility] Neurology - [address] [address] Riddhi Wilson APRN 1021 [facility] 200 [place] [address] documented as of this encounter Visit Diagnoses Not on filedocumented in this encounter Care Teams Harbor Tug Captain Relationship Specialty Start Date End Date [facility] Connection, Find-A-Doc [facility] [place] [address] PCP - General 11/07/24 11/17/24 Minesh Godwin MD [address] [place] [address] PCP - General Family Medicine 11/18/24 documented as of this encounter
--- OUTSIDE RECORDS SUMMARY | 2025-06-30 14:27 | XMS_ITS | Clinical Summary ---
Author Organization [employer] ([place], [place], [place], [place]) Address [address] [place] [address] Care Team Providers Care Pricing Manager Name Role Phone Minesh Godwin MD Primary Care Provider [phone] Allergies No known active allergies Medications amLODIPine (NORVASC) 5 MG tablet Take 1 tablet (5 mg total) by mouth daily. 30 tablet 11/10/2024 Active aspirin 81 MG EC tablet Take 1 tablet (81 mg total) by mouth daily. 30 tablet 11/10/2024 Active atorvastatin (LIPITOR) 20 MG tablet Take 1 tablet (20 mg total) by mouth nightly. 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 11/28/2024 Social History Tobacco Use Types Packs/Day Years Used Date Smoking Tobacco: Every Day Cigarettes 1 35.8 Started: 1989 Smokeless Tobacco: Current Snuff Tobacco Cessation:Ready to Q uit: Not Asked; Counseling Given: Not Answered Sex and Gender Information Value Date Recorded Sex Assigned at Not on file 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 Gender Identity Not on file Sexual Orientation Not on file Last Filed Vital Signs Vital Sign Reading Time Taken Comments Blood Pressure 140/84 01/28/2025 11:45 AM EDT Pulse 70 01/28/2025 11:32 AM EDT Temperature 36.2 C (97.2 F) 11/09/2024 12:47 PM EST Respiratory Rate 18 11/09/2024 4:05 AM EST Oxygen Saturation 97% 01/28/2025 11:32 AM EDT Inhaled Oxygen Concentration - - Weight 66.7 kg (147 lb) 01/28/2025 11:32 AM EDT Height 177.8 cm (5' 10 ) 01/28/2025 11:32 AM EDT Body Mass Index 21.09 01/28/2025 11:32 AM EDT Plan of Treatment Upcoming Encounters Date Type Department Care Team (Late st Contact Info) Description 07/28/2025 1:00 PM EST Office Visit [facility] Neurology - [address] [place] [address] Riddhi Wilson, MERCHANDISE HANDLER [address] [place] [address] Health Maintenance Due Date Last Done Comments CT Colonography 1968 Colonoscopy 1968 Colorectal Cancer Screening 1968 FOBT/FIT 1968 Fit-DNA (Cologuard) 1968 Sigmoidoscopy 1968 Depression Screening (12+) 1980 HIV Screening 1983 Hepatitis C Screening 1986 Pneumococcal 50+ years (1 of 2 - PCV) 1987 DTAP/TDAP/TD VACCINES (2 - Td or Tdap) 11/26/2006 Lung cancer screening 2018 Shingles Vaccine (Zoster) (1 of 2) 2018 COVID-19 VACCINE (1 - season) 2025 Influenza Vaccine (#1) 2025 Tobacco Cessation Counseling and Screening (12+) 11/0811/08/2024 Lipid Panel 11/09/2027 11/09/2024 Procedures Procedure Name Priority Date/Time Associated Diagnosis Comments LDL CHOLESTEROL, DIRECT Routine 11/09/2024 4:13 AM EST from Last 3 Months or Most Recently Relevant to Health Maintenance Results * (ABNORMAL) LDL cholesterol, direct (11/09/2024 4:13 AM EST) LDL Direct 108(H) 0 - 99 mg/dL 11/09/2024 5:33 AM EST [facility] Blood Venipuncture / Unknown 11/09/2024 4:13 AM EST 11/09/2024 4:38 AM EST us Gordo Johnson MD LAB BLOOD ORDERABLES Final Result [facility] [address] [phone] from Last 3 Months or Most Recently Relevant to Health Maintenance Insurance [facility] Advance Directives For more information, please contact: [phone] * Full Code (Latest Code Status on File) Date Activated Date Inactivated Comments 11/07/2024 11:56 PM 11/09/2024 5:17 PM Care Teams Pricing Manager Relationship Specialty Start Date End Date Minesh Godwin MD [address] [place] [address] PCP - General Family Medicine 11/18/24
--- OUTSIDE RECORDS SUMMARY | 2025-06-30 14:27 | XMS_ITS | Clinical Summary ---
Author Organization [facility] Address [address] [place] [address] Care Team Providers Care Public Information Coordinator Name Role Phone Minesh Godwin MD Primary Care Provider [phone] Social History Tobacco Use Types Packs/Day Years [...] INFLUENZA VACCINE 04/25/2025 Insurance [employer] [place] Care Teams Public Information Coordinator Relationship Specialty Start Date End Date Minesh Godwin MD [facility] [place] [address] PCP - General Family Medicine 12/20/24
--- OUTSIDE RECORDS SUMMARY | 2025-06-30 14:27 | XMS_ITS | Patient Health Record ---
Author Organization [facility] Address [address] [place] [id number] Care Team Providers Care Jewelry Drill Operator Name Role Phone Remi Skinner Primary Care [...] Status Risk Notes Problem Erectile dysfunction (disorder) (705766005) Erectile dysfunction, unspecified erectile dysfunction type (N52.9) Active confirmed Problem Restless legs (46327011) RLS (restless legs syndrome) (G25.81) Active confirmed Plan Of Treatment No Information Insurance Providers Payer Name Payer Address Payer Phone Subscriber Number Group Number Insured Name Patient Relationship to Insured Coverage Start Date Coverage End Date [employer] [address] [address] [place] [address] [id number] Pravin Anderson Self - patient is the insured Medical (General) History Medical History History ICD Code 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
--- OUTSIDE RECORDS SUMMARY | 2025-06-30 14:27 | XMS_ITS | Clinical Summary ---
Author Organization [facility] Address [address] [place] [address] Care Team Providers Care Cotton Buyer Name Role Phone Unavailable Primary Care Provider [...] 2018 UKY-Zoster Vaccines (1 of 2) 2018 CUI-IISRD-40 Vaccine (1 - 20 24-25 season) 2025 [...] patient's age to complete this topic Insurance [facility] MEDICAID
--- OUTSIDE RECORDS SUMMARY | 2025-06-30 14:27 | XMS_ITS | Referral Summary ---
Author Organization [employer] 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 Blood Venipuncture / Unknown 11/09/2024 4:13 AM EST 11/09/2024 4:38 AM EST us Gordo Johnson MD LAB BLOOD ORDERABLES Final Result [facility] [address] [place] [address], [facility] [phone] from Last 3 Months or Most Recently Relevant to Health Maintenance Insurance [facility] [place] Advance Directives For more information, please contact: [phone] * Full Code (Latest Code Status on File) Date Activated Date Inactivated Comments 11/07/2024 11:56 PM 11/09/2024 5:17 PM Care Teams Fabrication Welder Relationship Specialty Start Date End Date Minesh Godwin MD [address] [place] [address] PCP - General Family Medicine 11/18/24
--- NOTE | 2025-06-30 14:30 | CT_ITS ---
FINAL REPORT TECHNIQUE: Thin section axial images were obtained through the lungs using a low-dose technique per lung cancer screening protocol. Reconstruction images were obtained using the axial data. Exam was performed using dose reduction technique this study was performed with techniques to keep radiation doses as low as reasonably achievable (ALARA). Individualized dose reduction techniques using automated exposure control or adjustment of mA and/or kV according to the patient's size were employed. CLINICAL HISTORY: lung cancer screening. smoker, 1ppd for 40 years COMPARISON: None FINDINGS: CTDLvol: 2.90 DLP: 106.55 Current smoker 40 pack year history Lungs: No acute pulmonary abnormality. There is a tiny 3 mm subpleural nodule in the right upper lobe best seen on image #43 of series 4. There is evidence of prior granulomatous disease. Lymph nodes: No thoracic lymphadenopathy. Mediastinum: Heart size is normal. Mild coronary artery calcifications are noted. Pleura/pericardium: No pleural or pericardial effusion. Other: No acute abnormality in the upper abdomen. IMPRESSION: Single nodule in the right upper lobe as described. Lung RADS: 2S, the S designation for mild coronary artery calcifications. Recommendation: 12-month follow-up LDCT. Reviewed, Interpreted and Dictated by Renea Elias MD Transcribed by Fernanda Kern Authenticated and [facility]
== END 2025-06-30 23:59 | disposition home or self-care (01) ==
LOC: RAD 14:25
PROVIDERS: PCP Family Medicine; Visit Provider Family Medicine
DX: Z12.2 Encounter for screening for malignant neoplasm of respiratory organs (principal); F17.210 Nicotine dependence, cigarettes, uncomplicated; R91.1 Solitary pulmonary nodule; J84.10 Pulmonary fibrosis, unspecified; I25.10 Atherosclerotic heart disease of native coronary artery without angina pectoris
CPT/HCPCS: 71271

== ENCOUNTER 2025-07-02 15:12 | Outpatient (CLI) | payer OTHER, SELFPAY ==
[2025-07-02 15:50] LABS: Hematocrit 42.6 % (42.0-52.0); Hemoglobin 15.0 g/dL (14.1-18.0); Immature Granulocytes % 0.1 %; Mean Corpuscular HGB Conc 35.2 g/dL (31.8-35.4); Mean Corpuscular Hemoglobin 31.9 pg (27.0-31.2); Mean Corpuscular Volume 90.6 fl (80-94); Nucleated Red Blood Cells % 0 %; Platelet Count 246 K/mm3 (142-424); Red Blood Count 4.70 M/mm3 (4.60-6.20); Red Cell Distribution Width-SD 40.5 fL; White Blood Count 9.6 K/mm3 (4.8-10.8)
[2025-07-02 17:29] LABS: Alanine Aminotransferase 21 U/L (12-78); Albumin Level 4.0 g/dl (3.5-5.0); Albumin/Globulin Ratio 1.5 (1.1-1.8); Alkaline Phosphatase 96 U/L (38-126); Anion Gap 15.5 mEq/L (5-15); Aspartate Amino Transferase 30 U/L (17-59); Bilirubin,Total 0.7 mg/dl (0.2-1.3); Blood Urea Nitrogen 18 mg/dl (9-20); Calcium 9.0 mg/dl (8.4-10.2); Carbon Dioxide 26 mmol/L (22.0-30.0); Chloride 97 mmol/L (98-107); Cholesterol 133 mg/dl (140-200); Creatinine,Serum 1.10 mg/dl (0.66-1.25); Estimated Glomerular Filt Rate 69 ml/min (>60); GFR (African American) 83 ML/MIN (>60); Globulin 2.6 g/dL (1.3-3.2); Glucose 62 mg/dl (74-100); HDL Cholesterol 65 mg/dl (40-60); Potassium 4.5 mmoL/L (3.5-5.1); Sodium 134 mmol/L (136-145); Total Protein,Serum 6.6 g/dl (6.3-8.2); Triglycerides 90 mg/dl (30-150)
== END 2025-07-02 23:59 | disposition home or self-care (01) ==
LOC: LAB 15:13
PROVIDERS: PCP Family Medicine; Visit Provider Family Medicine
DX: E78.5 Hyperlipidemia, unspecified (principal); R31.9 Hematuria, unspecified; I10 Essential (primary) hypertension; Z12.5 Encounter for screening for malignant neoplasm of prostate
CPT/HCPCS: 36415; 80053; 80061; 85025; G0103

== ENCOUNTER 2025-07-22 09:56 | Outpatient (CLI) | payer OTHER, SELFPAY ==
--- OUTSIDE RECORDS SUMMARY | 2025-07-22 10:14 | XMS_ITS | Clinical Summary ---
Author Organization [facility] Address [address] [place] [address] Care Team Providers Care Brattice Builder Name Role Phone Unavailable Primary Care Provider [...] Date Last Done Comments UKY-Depression Screening 1968 UKY-Infant/Child/Adol SDOH Screenings 1968 UKY- SDOH Screenings 1986 [...] 2018 UKY-Zoster Vaccines (1 of 2) 2018 TDE-EYGYL-04 Vaccine (1 - 20 24-25 season) 2025 [...] patient's age to complete this topic Insurance [facility] MEDICAID
--- OUTSIDE RECORDS SUMMARY | 2025-07-22 10:14 | XMS_ITS | Clinical Summary ---
Author Organization [facility] Address [address] [place] [address] Care Team Providers Care Back Joiner Name Role Phone Minesh Godwin MD Primary Care Provider [phone] Social History Tobacco Use Types Packs/Day Years [...] INFLUENZA VACCINE 04/25/2025 Insurance [employer] [place] Care Teams Back Joiner Relationship Specialty Start Date End Date Minesh Godwin MD [facility] [place] [address] PCP - General Family Medicine 12/20/24
--- OUTSIDE RECORDS SUMMARY | 2025-07-22 10:14 | XMS_ITS | Encounter Summary ---
Author Organization [employer] ([place], [place], [place], [place]) Address [address] [place] [address] Care Team Providers Care Patient Care Name Role Phone [facility], Find-A-Doc Primary Care Provider Minesh Godwin MD Primary Care Provider [phone] Reason for Visit * Reason Onset Date Comments Hospital Follow Up 11/11/2024 Encounter Details Date Type Department Care Team (Late st Contact Info) Description 11/11/2024 Telephone [facility] Primary Care [address] [place] [address] Maryan Ponce DO [address] [place] [address] Hospital Follow Up Social History Tobacco Use Types Packs/Day Years Used Date Smoking Tobacco: Every Day Cigarettes 1 35.8 Started: 1989 Smokeless Tobacco: Current Snuff Sex and Gender Information Value Date Recorded Sex Assigned at Not on file 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 Gender Identity Not on file Sexual Orientation [...] up with provider after discharge: Location admitted: [facility] Reason for admission: TIA (transient ischemic attack) [...] Number: OK to leave message on voicemail: IFIED REGISTERED DENTAL ASSISTANT documented in this encounter Plan of Treatment Upcoming Encounters Date Type Department Care Team (Late st Contact Info) Description 07/28/2025 1:00 PM EST Office Visit [facility] Neurology - [address] [address] Riddhi Wilson APRN 1021 [facility] 200 [place] [address] documented as of this encounter Visit Diagnoses Not on filedocumented in this encounter Care Teams Patient Care Relationship Specialty Start Date End Date [facility] Connection, Find-A-Doc [facility] [place] [address] PCP - General 11/07/24 11/17/24 Minesh Godwin MD [address] [place] [address] PCP - General Family Medicine 11/18/24 documented as of this encounter
--- OUTSIDE RECORDS SUMMARY | 2025-07-22 10:14 | XMS_ITS | Patient Health Record ---
Author Organization [facility] Address [address] [place] [id number] Care Team Providers Care Transmission Rebuilder Name Role Phone Remi Skinner Primary Care [...] Status Risk Notes Problem Erectile dysfunction (disorder) (368796397) Erectile dysfunction, unspecified erectile dysfunction type (N52.9) Active confirmed Problem Restless legs (59145921) RLS (restless legs syndrome) (G25.81) Active confirmed Plan Of Treatment No Information Insurance Providers Payer Name Payer Address Payer Phone Subscriber Number Group Number Insured Name Patient Relationship to Insured Coverage Start Date Coverage End Date [employer] [address] [address] [place] [address] [phone] [id number] Pravin Anderson Self - patient is the insured Medical (General) History Medical History History ICD Code 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
--- OUTSIDE RECORDS SUMMARY | 2025-07-22 10:14 | XMS_ITS | Data Portability ---
Author Organization [facility] Address [address] [place] [address] Assessment Encounter Date Assessment Date Assessment LastModified by Organization Details LastModified Time 01/04/2024 01/04/2024 -Medications were reviewed and any necessary updates and renewals were made, patient instructed to complete as prescribed. -The potential side effects of medications were discussed. -Counseling was done on care goals and ways to prevent future hospitalizatio ns. -Further treatment per orders listed below. [email or web address] Not available 01/04/2024 15:19:52 Plan of Treatment Reminders Order Date Submit Date Provider Last Modified By Organization Details Last Modified Time Details Appointments None recorded. Lab CBC w/ auto diff 2023 024 [facility] (Lab), [address] [place] [address] [address], [place], [address], 4 10:09:36 CMP, serum or plasma 2023 024 [facility] (Lab), [address] [place] [address] [address], [place], [address], 4 10:09:35 C reactive protein, QN, serum or plasma 2023 024 [email or web address], [address], [facility] F, [place], [address], 4 14:08:49 SONALI (antinuclea r antibodies) screen, serum 2023 024 [place], [address], [place] F, [place], [address], 4 17:07:03 CBC w/ auto diff 2023 024 [place] [facility], [address], [place] F, [place], [address], 4 17:07:00 CMP, serum or plasma 2023 024 [place] [facility], [address], [place] F, [place], [address], 4 17:07:00 erythrocyte sedimentati on rate by westergren method 2023 024 [facility], [address], [place] F, [place], [address], 4 14:08:49 inflammatio n panel, serum or plasma 2023 024 [place] [facility], [address], [place], [place], [address], 4 17:07:03 CMP, serum or plasma 2023 024 [facility], [address], [place], [place], [address], 4 14:08:49 unlisted lab - lupus activity profile (rdl) 2023 024 [place] [facility], [address], [place], [place], [address], 4 17:07:02 rf (rheumatoid factor) + anti-ccp abs, serum 2023 024 [place] [facility], [address], [place], [place], [address], 4 17:07:02 unlisted lab - sjogren's profile plus (rdl) 2023 [place] [facility], [address], [place] F, [place], [address], 4 17:07:01 Referral None recorded. Procedures None recorded. Surgeries None recorded. Imaging electrocard iogram 2023 [facility] (X-Ray), [address], [place], [address], 4 08:31:55 XR, chest, 2 view 2023 [facility] (X-Ray), [address], [place], [address], 4 09:22:17 XR, elbow, 3 or more view 2023 024 [facility] (X-Ray), [address], [place], [address], 4 12:30:46 XR, knee, 3 view 2023 024 [facility] ([facility]), [address], [place], [address], 4 12:31:35 Medication Orders bupropion HCl 75 mg tablet 2023 024 [facility], [address], [place], [address], 4 15:37:36 Patient TargetsNo targets recorded. Patient InstructionsNo instructions recorded. Reason for Referral None Reported. Results Created Date Observation Date Name Description Value Unit Range Abnormal Flag Note LastModifiedBy Organization Detail LastModifiedTime 01/04/20 24 01/05/2024 CBC WITH DIFFE RENTI AL/PL ATELE T WBC 7.8 x10e3 /uL 3.4-10 .8 Not Available [facility] ([facility]) [address] [facility], [place], [address], 01/11/2024 17:06:59 01/04/20 24 01/05/2024 CBC WITH DIFFE RENTI AL/PL ATELE T RBC 5.42 x10e6 /uL 4.14-5 .80 Not Available [facility] ([facility]) [address] [facility], [place], [address], 01/11/2024 17:06:59 01/04/20 24 01/05/2024 CBC WITH DIFFE RENTI AL/PL ATELE T hemoglobin 17.7 g/dL 13.0-1 7.7 Not Available [facility] ([facility]) [address] [facility], [place], [address], 01/11/2024 17:06:59 01/04/20 24 01/05/2024 CBC WITH DIFFE RENTI AL/PL ATELE T hematocrit 51.0 % 37.5-5 1.0 Not Available [facility] ([facility]) [address] [facility], [place], [address], 01/11/2024 17:06:59 01/04/20 24 01/05/2024 CBC WITH DIFFE RENTI AL/PL ATELE T MCV 94 fL 79-97 Not Available [facility] ([facility]) [address] [place], [address], 01/11/2024 17:06:59 01/04/20 24 01/05/2024 CBC WITH DIFFE RENTI AL/PL ATELE T MCH 32.7 pg 26.6-3 3.0 Not Available [facility] ([facility]) [address] [place], [address], 01/11/2024 17:06:59 01/04/20 24 01/05/2024 CBC WITH DIFFE RENTI AL/PL ATELE T MCHC 34.7 g/dL 31.5-3 5.7 Not Available [facility] ([facility]) [address] [facility], [place], [address], 01/11/2024 17:06:59 01/04/20 24 01/05/2024 CBC WITH DIFFE RENTI AL/PL ATELE T RDW 13.3 % 11.6-1 5.4 Not Available [facility] ([facility]) [address] [facility], [place], [address], 01/11/2024 17:06:59 01/04/20 24 01/05/2024 CBC WITH DIFFE RENTI AL/PL ATELE T platelets 228 x10e3 /uL 150-45 0 Not Available [facility] ([facility]) [address] [facility], [place], [address], 01/11/2024 17:06:59 01/04/20 24 01/05/2024 CBC WITH DIFFE RENTI AL/PL ATELE T neutrophils 71 % not estab. Not Available [facility] ([facility]) [address] [facility], [place], [address], 01/11/2024 17:06:59 01/04/20 24 01/05/2024 CBC WITH DIFFE RENTI AL/PL ATELE T lymphs 20 % not estab. Not Available [facility] ([facility]) [address] [facility], [place], [address], 01/11/2024 17:06:59 01/04/20 24 01/05/2024 CBC WITH DIFFE RENTI AL/PL ATELE T monocytes 5 % not estab. Not Available [facility] ([facility]) [address] [facility], [place], [address], 01/11/2024 17:06:59 01/04/20 24 01/05/2024 CBC WITH DIFFE RENTI AL/PL ATELE T eos 3 % not estab. Not Available [facility] ([facility]) [address] [facility], [place], [address], 01/11/2024 17:06:59 01/04/20 24 01/05/2024 CBC WITH DIFFE RENTI AL/PL ATELE T basos 1 % not estab. Not Available [facility] ([facility]) [address] [place], [address], 01/11/2024 17:06:59 01/04/20 24 01/05/2024 CBC WITH DIFFE RENTI AL/PL ATELE T immature cells PLANT SUPERINTENDENT Not Available [facility] ([facility]) [address] [place], [address], 01/11/2024 17:06:59 01/04/20 24 01/05/2024 CBC WITH DIFFE RENTI AL/PL ATELE T neutrophils (absolute) 5.5 x10e3 /uL 1.4-7. 0 Not Available [facility] ([facility]) [address] [place], [address], 01/11/2024 17:06:59 01/04/20 24 01/05/2024 CBC WITH DIFFE RENTI AL/PL ATELE T lymphs (absolute) 1.5 x10e3 /uL 0.7-3. 1 Not Available [facility] ([facility]) [address] [place], [address], 01/11/2024 17:06:59 01/04/20 24 01/05/2024 CBC WITH DIFFE RENTI AL/PL ATELE T monocytes(ab solute) 0.4 x10e3 /uL 0.1-0. 9 Not Available [facility] ([facility]) [address] [place], [address], 01/11/2024 17:06:59 01/04/20 24 01/05/2024 CBC WITH DIFFE RENTI AL/PL ATELE T eos (absolute) 0.3 x10e3 /uL 0.0-0. 4 Not Available [facility] ([facility]) [address] [place], [address], 01/11/2024 17:06:59 01/04/20 24 01/05/2024 CBC WITH DIFFE RENTI AL/PL ATELE T baso (absolute) 0.0 x10e3 /uL 0.0-0. 2 Not Available [facility] ([facility]) [address] [facility], [place], [address], 01/11/2024 17:06:59 01/04/20 24 01/05/2024 CBC WITH DIFFE RENTI AL/PL ATELE T immature granulocytes 0 % not estab. Not Available [facility] ([facility]) [address] [facility], [place], [address], 01/11/2024 17:06:59 01/04/20 24 01/05/2024 CBC WITH DIFFE RENTI AL/PL ATELE T immature grans (abs) 0.0 x10e3 /uL 0.0-0. 1 Not Available [facility] ([facility]) [address] [facility], [place], [address], 01/11/2024 17:06:59 01/04/20 24 01/05/2024 CBC WITH DIFFE RENTI AL/PL ATELE T NRBC PLANT SUPERINTENDENT Not Available [facility] ([facility]) [address] [facility], [place], [address], 01/11/2024 17:06:59 01/04/20 24 01/05/2024 CBC WITH DIFFE RENTI AL/PL ATELE T hematology comments: PLANT SUPERINTENDENT Not Available [facility] ([facility]) [address] [facility], [place], [address], 01/11/2024 17:06:59 01/04/20 24 01/05/2024 COMP. METAB OLIC PANEL (14) glucose 98 mg/dL 70-99 Not Available [facility] ([facility]) [address] [place], [address], 01/11/2024 17:07:00 01/04/20 24 01/05/2024 COMP. METAB OLIC PANEL (14) BUN 10 mg/dL 6-24 Not Available [facility] ([facility]) [address] [facility], [place], [address], 01/11/2024 17:07:00 01/04/20 24 01/05/2024 COMP. METAB OLIC PANEL (14) creatinine 1.09 mg/dL 0.76-1 .27 Not Available [facility] ([facility]) [address] [facility], [place], [address], 01/11/2024 17:07:00 01/04/20 24 01/05/2024 COMP. METAB OLIC PANEL (14) eGFR 80 mL/mi n/1.7 3 >59 Not Available [facility] ([facility]) [address] [facility], [place], [address], 01/11/2024 17:07:00 01/04/20 24 01/05/2024 COMP. METAB OLIC PANEL (14) BUN/creatini ne ratio 9 9-20 Not Available [facility] ([facility]) [address] [facility], [place], [address], 01/11/2024 17:07:00 01/04/20 24 01/05/2024 COMP. METAB OLIC PANEL (14) sodium 140 mmol/ L 134-14 4 Not Available [facility] ([facility]) [address] [place], [address], 01/11/2024 17:07:00 01/04/20 24 01/05/2024 COMP. METAB OLIC PANEL (14) potassium 4.8 mmol/ L 3.5-5. 2 Not Available [facility] ([facility]) [address] [place], [address], 01/11/2024 17:07:00 01/04/20 24 01/05/2024 COMP. METAB OLIC PANEL (14) chloride 100 mmol/ L 96-106 Not Available [facility] ([facility]) [address] [facility], [place], [address], 01/11/2024 17:07:00 01/04/20 24 01/05/2024 COMP. METAB OLIC PANEL (14) carbon dioxide, total 26 mmol/ L 20-29 Not Available [facility] ([facility]) [address] [facility], [place], [address], 01/11/2024 17:07:00 01/04/20 24 01/05/2024 COMP. METAB OLIC PANEL (14) calcium 9.3 mg/dL 8.7-10 .2 Not Available [facility] ([facility]) [address] [facility] [place], [address], 01/11/2024 17:07:00 01/04/20 24 01/05/2024 COMP. METAB OLIC PANEL (14) protein, total 6.9 g/dL 6.0-8. 5 Not Available [facility] ([facility]) [address] [facility], [place], [address], 01/11/2024 17:07:00 01/04/20 24 01/05/2024 COMP. METAB OLIC PANEL (14) albumin 4.3 g/dL 3.8-4. 9 Not Available [facility] ([facility]) [address] [facility] [place], [address], 01/11/2024 17:07:00 01/04/20 24 01/05/2024 COMP. METAB OLIC PANEL (14) globulin, total 2.6 g/dL 1.5-4. 5 Not Available [facility] ([facility]) [address] [facility] [place], [address], 01/11/2024 17:07:00 01/04/20 24 01/05/2024 COMP. METAB OLIC PANEL (14) A/G ratio 1.7 1.2-2. 2 Not Available [facility] ([facility]) [address] [facility], [place], [address], 01/11/2024 17:07:00 01/04/20 24 01/05/2024 COMP. METAB OLIC PANEL (14) bilirubin, total 0.5 mg/dL 0.0-1. 2 Not Available [facility] ([facility]) [address] [place], [address], 01/11/2024 17:07:00 01/04/20 24 01/05/2024 COMP. METAB OLIC PANEL (14) alkaline phosphatase 73 IU/L 44-121 Not Available [facility]) [address] [place], [address], 01/11/2024 17:07:00 01/04/20 24 01/05/2024 COMP. METAB OLIC PANEL (14) AST (SGOT) 20 IU/L 0-40 Not Available [facility] ([facility]) [address] [facility], [place], [address], 01/11/2024 17:07:00 01/04/20 24 01/05/2024 COMP. METAB OLIC PANEL (14) ALT (SGPT) 13 IU/L 0-44 Not Available [facility] ([facility]) [address] [place], [address], 01/11/2024 17:07:00 01/04/20 24 01/09/2024 SJOGR EN'S PROFI LE PLUS (RDL) anti-RO (ss-A) Ab (rdl) <20 units <20 Not Available [facility] [address] [facility], [place], [address], 01/11/2024 17:07:01 01/04/20 24 01/09/2024 SJOGR EN'S PROFI LE PLUS (RDL) anti-la (ss-B) Ab (rdl) <20 units <20 Not Available [facility] [address] [place], [address], 01/11/2024 17:07:01 01/04/20 24 01/11/2024 SJOGR EN'S PROFI LE PLUS (RDL) anti-fodrin Ab, IgG (rdl) <10 units <10 Not Available [facility] [address] [place] [address], [address], 01/11/2024 17:07:01 01/04/20 24 01/11/2024 SJOGR EN'S PROFI LE PLUS (RDL) anti-fodrin Ab, IgA (rdl) <10 units <10 Inter preta tion for Anti- Ro, Anti- La: Negat zabrina: <20 Weak Posit zabrina: 20 - 39 Moder ate Posit zabrina: 40 - 80 Stron g Posit zabrina: >80 Anti- Fodri n antib odies are assoc iated with Sjogr en's Syndr ome and may occur in Anti- Ro-ne gativ e Sjogr en's ([place] e T et al. J Rheum atol 2003; 30:21 57-21 59). Not Available [facility] [address] [place] [address], [address], 01/11/2024 17:07:01 01/04/20 24 01/09/2024 LUPUS ACTIV ITY PROFI LE (RDL) anti-dsdna Ab by danni(rdl) <8.0 IU/mL <8.0 Not Available [facility] [address] [place] [address], [address], 01/11/2024 17:07:02 01/04/20 24 01/09/2024 LUPUS ACTIV ITY PROFI LE (RDL) C3 complement (rdl) 103 mg/dL 82-167 Not Available [facility] [address] [place] [address], [address], 01/11/2024 17:07:02 01/04/20 24 01/09/2024 LUPUS ACTIV ITY PROFI LE (RDL) C4 complement (rdl) 24 mg/dL 14-44 Not Available [facility] [address] [facility], [place], [address], 01/11/2024 17:07:02 01/04/20 24 01/05/2024 RHEUM ATOID ARTHR ITIS PROFI LE rheumatoid factor (rf) <10.0 IU/mL <14.0 Not Available [facility]) [address] [facility], [place], [address], 01/11/2024 17:07:02 01/04/20 24 01/05/2024 RHEUM ATOID ARTHR ITIS PROFI LE anti-ccp Ab, IgG/IgA 2 units 0-19 Negat zabrina <20 Weak posit zabrina 20 - 39 Moder ate posit zabrina 40 - 59 Stron g posit zabrina >59 Not Available [facility] ([facility]) [address] [place], [address], 01/11/2024 17:07:02 01/04/20 24 01/05/2024 ESR-W ES+CR P sedimentatio n rate-westerg susan 17 mm/HR 0-30 Not Available [facility] ([facility]) [address] [facility], [place], [address], 01/11/2024 17:07:03 01/04/20 24 01/05/2024 ESR-W ES+CR P C-reactive protein, quant 1 mg/L 0-10 Not Available [facility] ([facility]) [address] [place], [address], 01/11/2024 17:07:03 01/04/20 24 01/05/2024 ANTIN UCLEA R AB MULTI PLEX RFX 9 SONALI direct Negati ve negati ve Not Available [facility] ([facility]) [address] [place], [address], 01/11/2024 17:07:03 01/06/20 24 01/06/2024 XR, elbow , 3 or more view No observ ation record ed. [facility] [address], [place], [address], 01/09/2024 10:21:07 01/06/20 24 01/06/2024 XR, knee, 3 view No observ ation record ed. [facility] [address], [place], [address], 01/09/2024 10:21:08 02/14/20 24 02/13/2024 MRI, knee, w/o contr ast No observ ation record ed. [facility] [address], [place], [address], 02/15/2024 13:12:33 06/17/20 24 06/17/2024 XR, chest , 2 view No observ ation record ed. [facility] [address], [place], [address], 06/25/2024 10:31:21 06/18/20 24 06/17/2024 elect anil avalos am No observ ation record ed. [facility] [address], [place], [address], 06/25/2024 10:31:22 Result Notes None recorded. Problems Name Problem SNOMED Code Status Onset Date Resolution Date Notes Provider Name and Address Organization Details Recorded Time Raynaud's disease 391578267 Active 024 Janet Stears null, [place] - [facility] 4 15:30:15 Anxiety 77825912 Active 024 Janet Stears null, [place] - [facility] 4 15:31:04 Problem Notes None recorded. Procedures Surgical History Date Name Laterality Status Provider Name and Address Organization Details Recorded Time 01/04/20 24 Medication Reconcilliation completed Janet Stears [place] - [facility] 01/04/2024 15:19:52 06/25/20 Vasectomy completed Janet Stears [place] - [facility] 01/04/2024 15:20:31 Imaging Results None recorded. Procedure Notes None recorded. Medical Equipment None Reported. Allergies Allergen ID Allergen Name Allergen Category Reaction Reaction Severity Criticality Documentation Date Start Date Code Code System Note Provider Name and Address Organization Details Recorded Time 865446 Propylami ne derivativ e with histamine receptor antagonis t mechanism of action (substanc e) medicatio n Not available Not available Not available 01/04/2024 80651 8008 [facility] 15:[facility]58 Medications Name Sig Start Date Stop Date Status Note LastModified by Organization Details LastModified Time sildenafil 50 mg tablet TAKE 1 TABLET BY MOUTH DIRECTED 01/03 completed Not Available Not Available Not Available bupropion HCl 75 mg tablet TAKE 1 TABLET BY MOUTH ONCE DAILY FOR 14 DAYS THEN 1 TABLET TWICE DAILY FOR 14 DAYS active Not Available Not Available No t Available Vitals Date Recorded Respiratory rate Body weight Body temperature Body mass index (BMI) Body height Heart rate Oxygen saturation Oxygen saturation in Arterial blood by Pulse oximetry Systolic And Diastolic Provider Name and Address Organization Details Last Updated DateTime 4 18 /min 21967.6 7 g 98.1 [degF] 23.2 kg/m2 170.18 cm 72 /min 97 % 97 % 118/66 mm[Hg] Janet Choudhuryaltagracia [facility] 4 15:29:00 Date Recorded Body height Body mass index (BMI) Body weight Heart rate Oxygen saturation Oxygen saturation in Arterial blood by Pulse oximetry Respiratory rate Pain severity - 0-10 verbal numeric rating [Score] - Reported Body temperature Systolic And Diastolic Provider Name and Address Organization Details Last Updated DateTime 4 170.18 cm 23.2 kg/m2 45989.3 7 g 67 /min 97 % 97 % 20 /min 5 98 [degF] 124/88 mm[Hg] Gela Aguilera [facility] 4 14:34:33 Social History Question Answer Notes LastModified by Organizat ion Details LastModified Time Tobacco Smoking Status Current Every Day Smoker Janet Choudhuryaltagracia ghosh [facility] 01/04/2024 15:20:30 Do You Have An Advance Directive? No Information not available 01/04/2024 Are You Blind Or Do You Have Difficulty Seeing? Yes No Glasses, Hard To Read Close Information not available 01/04/2024 Is Blood Transfusion Acceptable In An Emergency? Yes Information not available 01/04/2024 What Is Your Level Of Caffeine Consumption? Moderate Information not available 01/04/2024 How Much Tobacco Do You Chew? 2-4/day Information not available 01/04/2024 Are You Deaf Or Do You Have Serious Difficulty Hearing? Yes No Hearing Aids Information not available 01/04/2024 What Type Of Diet Are You Following? REGULAR Information not available 01/04/2024 Which Illicit Or Recreational Drugs Have You Used? Marijuana Information not available 01/04/2024 What Is The Highest Grade Or Level Of School You Have Completed Or The Highest Degree You Have Received? [id number] Information not available 01/04/2024 Have There Been Any Changes To Your Family Or Social Situation? No Information not available 01/04/2024 What Is The Fluoride Status Of Your Home? Unknown Information not available 01/04/2024 How Many Years Have You Used Illicit Or Recreational Drugs? 30 Information not available 01/04/2024 Do You Have A Medical Power Of Food Checkers And Cashiers Supervisor? No Information not available 01/04/2024 What Was The Date Of Your Most Recent Tobacco Screening? 01/04/2024 Information not available 01/04/2024 What Is Your Current Pack Years? 30ormorepacky ears Information not available 01/04/2024 What Is Your Relationship Status? Single Information not available 01/04/2024 Do You Use Your Seat Belt Or Car Seat Routinely? Yes Information not available 01/04/2024 Are You Sexually Active? Yes Information not available 01/04/2024 Do You Have Smoke And Carbon Monoxide Detectors In Your Home? Yes Information not available 01/04/2024 At What Age Did You Start Smoking Tobacco? 10 Information not available 01/04/2024 Are You Passively Exposed To Smoke? Yes Information not available 01/04/2024 How Much Tobacco Do You Smoke? 1 PPD Information not available 01/04/2024 Has Tobacco Cessation Counseling Been Provided? Yes Information not available 06/14/2024 On What Date Was Tobacco Cessation Counseling Provided? 06/14/2024 Information not available 06/14/2024 How Many Years Have You Smoked Tobacco? 43 Information not available 01/04/2024 Have You Used IV Drugs? No Information not available 01/04/2024 Do You Have Difficulty Walking Or Climbing Stairs? No Information not available 01/04/2024 Sex: Male Functional Status Question Answer Note LastModified by Organizat ion Details LastModified Time How many times per week do you consume alcohol? 3-4 times per week Information not available 01/04/2024 Do you or have you ever used smokeless tobacco? Currently chews tobacco Information not available 01/04/2024 Are you currently employed? No Information not available 01/04/2024 Do you have transportation difficulties? No Information not available 01/04/2024 Are you able to care for yourself independently? Yes Information not available 01/04/2024 Do you have difficulty dressing, bathing, grooming, or toileting? No Information not available 01/04/2024 Do you or have you ever used e-cigarettes or vape? Never used electronic cigarettes Information not available 01/04/2024 What is your exercise level? None Information not available 01/04/2024 Do you use any illicit or recreational drugs? Yes Information not available 01/04/2024 Do you or have you ever used any other forms of tobacco or nicotine? Yes Information not available 01/04/2024 What is your level of alcohol consumption? Moderate Information not available 01/04/2024 Are you able to walk independently without assistance or assistive devices? YESWOREST Information not available 01/04/2024 Do you have difficulty doing errands alone? No Information not available 01/04/2024 Mental Status Question Answer Note LastModified by Organizat ion Details LastModified Time Do you feel stressed (tense, restless, nervous, or anxious, or unable to sleep at night)? [id number] Information not available 01/04/2024 Do you have difficulty concentrating, remembering or making decisions? No Information no t available 01/04/2024 Family History Relationship Description Onset Age of this Age Resolved Age Notes LastModified by Organization Details LastModified Time Mother Depressive disorder bstears Not available 2023 15:30:49 Father Depressive disorder bstears Not available 2023 15:30:49 Sister Depressive disorder bstears Not available 2023 15:30:49 Medical History Condition Response Anxiety Disorder Y Arthritis Y Blood Diseases Y Insomnia Y Depression Y COPD Y Immunizations Vaccine Type Date Status Note Provider Nam e and Address Organization Details Recorded Time Td (adult), 2 Lf tetanus toxoid, preservative free, adsorbed 7 completed Gela ghosh [place] - [facility] 06/14/2024 14:34:59 Past Encounters Encounter ID Performer Location Encounter Start Date Encounter Closed Date Diagnosis/Indication Diagnosis SNOMED-CT Code Diagnosis ICD10 Code Diagnosis IMO Codes Diagnosis Note [id number] Kaye Felipe 26 [address] [address] 01/04/2024 15:14:02 01/04/2024 16:21:21 Raynaud's disease [id number] I73.00 Pain of ri ght knee joint [id number] M25.561 Pain of ri ght elbow joint [id number] M25.956 [id number] Kaye Felipe [address] [address] 06/14/2024 14:21:03 06/14/2024 15:08:27 Pain of right knee joint [id number] M25.561 Pre-surgery testing [id number] Z01.89 labs,ekg,x ray-will look at clearance once results 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 Health Concerns Section Related Observation LastModified by Organization Detai ls LastModified Time None Recorded Concern Status LastModified by Organization Details LastModified Time None Recorded Advance Directives Directive N: Payers Insurance Date Sequence Insurance Name Policy Number Policy Moya Covered Member ID Moya Member ID Guarantor Name 07/02/2024 [place] [id number]ILL[place] (MEDICAID) Pravin Grantcker [id number] Pravin Grantcker 07/01/2024 1 [facility] Pravin Anderson [id number] Pravin Anderson Notes Date Note Type Note Provider Name and Address Organization Details Recorded Time 01/04/2024 text/html Emergency Depart ment Follow-Up RecordReported by PatientEmergency Room Follow-Up RecordFor discharge information, patient reportsname of hospital/urgent care patient was seen: ([facility]),patient presented to hospital/urgent care on or around: actual date 12-27-2023,patient presented to hospital for treatment of: (right knee pain, feet and legs pain),treatment received by hospital/urgent care: (no medication prescribed),patient's condition has: unchanged, andhospital records available at the time of this visit: yes.ROS as noted in the HPI 53 year old male who presents to the office today for a 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 pt states he has had discolored/white/blue toes and fingers his entire life but has noticed it more often. pt states he is a smoker and they are worse when it is coldhas concerns of right elbow and right leg pain Kaye Felipe APRN [address], [place], [address], [place] - [facility] 01/05/2024 16:36:22 06/14/2024 text/html ROS as noted in the HPI 54 yr old male presents for a pre op eval. He is scheduled to have right knee surgery( meniscus repair) with Dr. Toro on Jul 03, 2024. pt states he has never had surgery. pt states no family issues with surgery/anesthesia.pt states he is having a increase in depression/anxiety due to not being able to work. no si or hi.pt states he sits and sugar alot. Kaye Felipe APRN [address], [place], [address], [place] [facility] 06/14/2024 15:38:16
--- OUTSIDE RECORDS SUMMARY | 2025-07-22 10:14 | XMS_ITS | Clinical Summary ---
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 Gender Identity Not on file Sexual Orientation [...] Description 07/28/2025 1:00 PM EST Office Visit [facility] Neurology - [address] [place] [address] Riddhi Wilson, HIGH SCHOOL PROFESSIONAL [address] [place] [address] Health Maintenance Due Date Last Done Comments CT Colonography 1968 Colonoscopy 1968 Colorectal Cancer Screening 1968 FOBT/FIT 1968 Fit-DNA (Cologuard) 1968 Sigmoidoscopy 1968 Depression Screening (12+) 1980 HIV Screening 1983 Hepatitis C Screening 1986 Pneumococcal 50+ years (1 of 2 - PCV) 1987 DTAP/TDAP/TD VACCINES (2 - Td or Tdap) 11/26/2006 Lung Cancer Screening 2018 Shingles Vaccine (Zoster) (1 of 2) [...] - 99 mg/dL 11/09/2024 5:33 AM EST [facility] Blood Venipuncture / Unknown 11/09/2024 4:13 AM EST 11/09/2024 4:38 AM EST us Gordo Johnson MD LAB BLOOD ORDERABLES Final Result [facility] [address] [phone] from Last 3 Months or Most Recently Relevant to Health Maintenance Insurance [facility] Advance Directives For more information, please contact: [phone] * Full Code (Latest Code Status on File) Date Activated Date Inactivated Comments 11/07/2024 11:56 PM 11/09/2024 5:17 PM Care Teams Play Leader Relationship Specialty Start Date End Date Minesh Godwin MD [address] [place] [address] PCP - General Family Medicine 11/18/24
--- OUTSIDE RECORDS SUMMARY | 2025-07-22 10:14 | XMS_ITS | Referral Summary ---
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 Gender Identity Not on file Sexual [...] Description 07/28/2025 1:00 PM EST Office Visit [facility] Neurology - [facility] [address] [address] Riddhi Wilson APRN [address] [facility] [address] [place] [address] Procedures Procedure Name Priority Date/Time Associated Diagnosis Comments LDL CHOLESTEROL, DIRECT Routine 11/09/2024 4:13 AM EST from Last 3 Months or Most Recently Relevant to Health Maintenance Results * (ABNORMAL) LDL cholesterol, direct (11/09/2024 4:13 AM EST) LDL Direct 108(H) 0 - 99 mg/dL 11/09/2024 5:33 AM EST [facility] Blood Venipuncture / Unknown 11/09/2024 4:13 AM EST 11/09/2024 4:38 AM EST us Gordo Johnson MD LAB BLOOD ORDERABLES Final Result [facility] [address] [place] [address], [facility] [phone] from Last 3 Months or Most Recently Relevant to Health Maintenance Insurance [facility] Advance Directives For more information, please contact: [phone] * Full Code (Latest Code Status on File) Date Activated Date Inactivated Comments 11/07/2024 11:56 PM 11/09/2024 5:17 PM Care Teams Knife Machine Operator Relationship Specialty Start Date End Date Minesh Godwin MD [address] [place] [address] PCP - General Family Medicine 11/18/24
--- NOTE | 2025-07-22 10:23 | CT_ITS ---
FINAL REPORT CLINICAL HISTORY: hemturia COMPARISON: 06/30/2025 FINDINGS: The lung bases are clear. The liver is normal in size and attenuation. Gallbladder is present. The spleen is unremarkable. The adrenals are normal. The pancreas is unremarkable. There are tiny, scattered benign-appearing renal cysts. No solid renal mass is identified. Precontrast images demonstrate no nephrolithiasis. Appendix is normal. Urinary bladder is unremarkable. There is no adenopathy or free fluid. IMPRESSION: Benign-appearing renal cysts without renal mass or hydronephrosis. Reviewed, Interpreted and Dictated by Edgar Arceo MD Transcribed by Stefania Salinas Authenticated and . [facility]
[2025-07-22] MEDS: SODIUM CHLORIDE 0.9% 10ML SYR (RAD ONLY) 10 ML IV (10:46)
[2025-07-22] MEDS: IOPAMIDOL-370 (76%);100ML BOTTLE 75 ML IV (10:46)
== END 2025-07-22 23:59 | disposition home or self-care (01) ==
PROVIDERS: PCP Family Medicine; Visit Provider Family Medicine
DX: N28.1 Cyst of kidney, acquired (principal); R31.9 Hematuria, unspecified
CPT/HCPCS: 74178; Q9967